=== PATIENT | female | born 1965 | race Caucasian/White ===

== ENCOUNTER → 2022-05-03 10:19 | Outpatient (BNVA) | payer SELFPAY | PROVIDERS: PCP Registered Nurse; Visit Provider Registered Nurse | DX: I10 Essential (primary) hypertension (principal); E78.5 Hyperlipidemia, unspecified; J45.909 Unspecified asthma, uncomplicated; I48.91 Unspecified atrial fibrillation | CPT/HCPCS: 80053; 80061; 84443; 85025 ==

== ENCOUNTER 2022-10-11 10:54 | Outpatient (CLI) | payer OTHER, SELFPAY ==
--- NOTE | 2022-10-11 11:11 | XRR_ITS ---
PROCEDURE INFORMATION: Exam: XR Chest Exam date and time: 10/11/2022 11:13 AM Age: 57 years old Clinical indication: Condition or disease; Lung condition and disease; Pneumonia; Additional info: J18.9 - pneumonia, unspecified organism TECHNIQUE: Imaging protocol: Radiologic exam of the chest. Views: 2 views. COMPARISON: No relevant prior studies available. FINDINGS: Lungs: There is no consolidation. Pleural spaces: There is no pleural effusion or pneumothorax. Heart/Mediastinum: Cardiomediastinal contours are unremarkable. Bones/joints: Bones are unremarkable. XR/XR chest 2V* [id number] IMPRESSION: No acute findings.
== END 2022-10-11 10:55 | disposition home or self-care (01) ==
PROVIDERS: PCP Registered Nurse; Visit Provider Registered Nurse
DX: J18.9 Pneumonia, unspecified organism (principal)
CPT/HCPCS: 71046; 85025

== ENCOUNTER 2023-01-29 14:00 | Outpatient (CLI) | payer OTHER, SELFPAY ==
--- NOTE | 2023-01-29 14:48 | XRR_ITS ---
PROCEDURE INFORMATION: Exam: XR Chest Exam date and time: 01/29/2023 3:10 PM Age: 57 years old Clinical indication: Other: Acute upper respiratory infection; Additional info: J06.9 - acute upper respiratory infection, unspecified TECHNIQUE: Imaging protocol: Radiologic exam of the chest. Views: 2 views. COMPARISON: CR XR chest 2V* [id number] 10/11/2022 11:13 AM FINDINGS: Lungs: Right middle lobe consolidation. Pleural spaces: Unremarkable. No pleural effusion. No pneumothorax. Heart/Mediastinum: Unremarkable. No cardiomegaly. Bones/joints: Unremarkable. XR/XR chest 2V* [id number] IMPRESSION: Right middle lobe consolidation.
[2023-01-29 14:49] LABS: Basophils # 0.1 10^3/uL (0.0-0.1); Basophils % 0.8 %; Eosinophils # 0.3 10^3/uL (0.0-0.8); Eosinophils % 3.2 %; Hematocrit 37.1 % (36-47); Lymphocytes # 2.1 10^3/uL (0.8-4.8); Mean Corpuscular HGB Conc 32.9 g/dL (30-55); Mean Corpuscular Hemoglobin 31.1 pg (27-33); Mean Corpuscular Volume 94.6 fl (85-98); Mean Platelet Volume 9.7 fL (7.4-10.4); Monocytes # 0.6 10^3/uL (0.2-0.9); Monocytes % 6.3 %; Neutrophils # 6.32 10^3/uL (1.8-7.7); Neutrophils % 67.1 %; Nucleated Red Blood Cells % 0 %; Platelet Count 271 10^3/cmm (157-399); Red Blood Count 3.92 10^6/uL (3.85-5.65); Red Cell Distribution Width 13.3 % (12.1-15.1); White Blood Count 9.42 10^3/uL (3.29-11.43)
== END 2023-01-29 14:01 | disposition home or self-care (01) ==
PROVIDERS: PCP Registered Nurse; Visit Provider Registered Nurse
DX: J06.9 Acute upper respiratory infection, unspecified (principal)
CPT/HCPCS: 36415; 71046; 85025

== ENCOUNTER → 2023-08-29 15:05 | Outpatient (BNVA) | payer OTHER, SELFPAY | PROVIDERS: PCP Registered Nurse; Visit Provider Registered Nurse | DX: Z13.6 Encounter for screening for cardiovascular disorders (principal); Z12.39 Encounter for other screening for malignant neoplasm of breast | CPT/HCPCS: 80053 ==

== ENCOUNTER 2023-09-22 13:20 | Outpatient (CLI) | payer OTHER, SELFPAY ==
--- NOTE | 2023-09-22 13:00 | MM_ITS ---
WS: [id number] BILATERAL 3D TOMOSYNTHESIS DIGITAL SCREENING MAMMOGRAPHY WITH CAD CLINICAL INFORMATION: Z12.39 - Encounter for other screening for malignant neop... HISTORY: Screening mammogram. No current complaints. COMPARISON: None. TECHNIQUE: Bilateral CC and MLO views. FINDINGS: Scattered fibroglandular densities bilaterally. No suspicious focal mass, asymmetry, calcifications, or architectural distortion. No evidence of malignancy. MM/[place] [id number] IMPRESSION: BI-RADS: 1-Negative FOLLOW UP: 1 Year Follow-up Recommend return to annual screening mammography.
== END 2023-09-22 13:21 | disposition home or self-care (01) ==
LOC: MOBLMAM 13:21
PROVIDERS: PCP Registered Nurse; Visit Provider Registered Nurse
DX: Z12.31 Encounter for screening mammogram for malignant neoplasm of breast (principal)
CPT/HCPCS: 77063; 77067

== ENCOUNTER → 2024-06-12 11:49 | Outpatient (BNVA) | payer OTHER, SELFPAY | PROVIDERS: PCP Registered Nurse; Visit Provider Internal Medicine Cardiovascular Disease | DX: N18.9 Chronic kidney disease, unspecified; R06.02 Shortness of breath; E78.5 Hyperlipidemia, unspecified; Z79.01 Long term (current) use of anticoagulants; R00.1 Bradycardia, unspecified | CPT/HCPCS: 36415; 71046; 80048; 80076; 83880; 84443; 85025; 93005 ==

== ENCOUNTER 2024-07-04 14:18 | Outpatient (CLI) | payer OTHER, SELFPAY | END 2024-07-04 14:19 | disposition home or self-care (01) | PROVIDERS: PCP Registered Nurse; Visit Provider Internal Medicine Endocrinology, Diabetes & Metabolism | DX: E05.90 Thyrotoxicosis, unspecified without thyrotoxic crisis or storm (principal) | CPT/HCPCS: 36415; 84445 ==

== ENCOUNTER 2024-07-10 08:23 | Outpatient (CLI) | payer OTHER, SELFPAY ==
--- NOTE | 2024-07-10 08:30 | USCV_ITS ---
Eloisa Baldwin Age: 59 Gender: F : 1965 Exam Date: 07/10/2024 08:46 Ordering Phys: Bishop Rubio MD ([email or web address]) Technologist: Exam Location: [facility] Indication: lv function BP: 154 / 84 HR: 57 Rhythm: Sinus Technical Quality: Adequate MEASUREMENTS (Male / Female) Normal Values 2D ECHO LV Diastolic Diameter PLAX 4.8 cm 4.2 - 5.9 / 3.9 - 5.3 cm IVS Diastolic Thickness 1.3 cm 0.6 - 1.0 / 0.6 - 0.9 cm IVS Systolic Thickness 1.6 cm LVPW Diastolic Thickness 1.3 cm 0.6 - 1.0 / 0.6 - 0.9 cm LVPW Systolic Thickness 1.9 cm LVOT Diameter 2.0 cm LV Ejection Fraction 2D Teich 67.0 % LV Ejection Fraction MOD 4C 59.7 % LV Ejection Fraction MOD 2C 63.5 % LV Ejection Fraction 2C AL 64.1 % LA Diameter 3.9 cm RA Systolic Volume 4C AL 55.3 ml RA Systolic Volume 4C MOD 53.1 ml LA Sys Volume AL 64.1 cm cubed LA Sys Volume Index AL 32.1 cm cubed/m squared Aorta at Sinotubular Diameter 2.4 cm IVC Diameter 2.0 cm M-MODE LA Ao Ratio MM 1.7 AV Cusp Separation MM 2.0 cm DOPPLER AV Peak Velocity 171.0 cm/s LVOT Peak Velocity 106.0 cm/s AV Area Cont Eq vti 2.2 cm squared AV Area Cont Eq pk 2.0 cm squared MV Peak Velocity 162.0 cm/s MV Area PHT 4.3 cm squared Mitral E to A Ratio 2.0 TV Peak Velocity 158.5 cm/s TR Peak Velocity 171.0 cm/s TR Peak Gradient 11.7 mmHg TV Peak E Velocity 120.0 cm/s PV Peak Velocity 124.0 cm/s FINDINGS Left Ventricle Normal left ventricular size and systolic function, EF 64%. No regional wall motion abnormalities. Mild left ventricular hypertrophy. Grade III/IV diastolic dysfunction (restrictive filling pattern), severely elevated filling pressures. Right Ventricle Normal right ventricular size and systolic function, . Right Atrium Mildly increased right atrial size. Left Atrium Mildly increased left atrial size. Mitral Valve Mild mitral valve regurgitation. Aortic Valve Aortic valve sclerosis. Tricuspid Valve Structurally normal tricuspid valve. Pulmonic Valve Pulmonic valve not well visualized. Pericardium Normal pericardium without effusion. Aorta Normal ascending aorta dimension. IVC Normal inferior vena cava. CONCLUSIONS Normal left ventricular size and systolic function, EF 64%. No regional wall motion abnormalities. Mild left ventricular hypertrophy. Grade III/IV diastolic dysfunction (restrictive filling pattern), severely elevated filling pressures. Aortic valve sclerosis. Mild mitral valve regurgitation. Mild biatrial enlargement There is no pericardial effusion. There are no intracardiac masses. Dr Bishop Rubio MD FACC (Electronically Signed) Final Date: 13 July 2024 09:41 S
== END 2024-07-10 08:24 | disposition home or self-care (01) ==
LOC: RAD 08:23
PROVIDERS: PCP Registered Nurse; Visit Provider Internal Medicine Cardiovascular Disease
DX: R06.09 Other forms of dyspnea (principal); R93.1 Abnormal findings on diagnostic imaging of heart and coronary circulation; I51.7 Cardiomegaly; I34.0 Nonrheumatic mitral (valve) insufficiency; I35.8 Other nonrheumatic aortic valve disorders
CPT/HCPCS: 93306

== ENCOUNTER → 2024-07-11 13:04 | Outpatient (BNVA) | payer OTHER, SELFPAY | PROVIDERS: PCP Registered Nurse; Visit Provider Nurse Practitioner Family | DX: R68.89 Other general symptoms and signs (principal) | CPT/HCPCS: 87400 ==

== ENCOUNTER 2024-07-19 12:43 | Outpatient (CLI) | payer OTHER, SELFPAY ==
--- NOTE | 2024-07-19 13:00 | CT_ITS ---
WS: [id number] CT CHEST HIGH RESOLUTION TECHNIQUE: Noncontrast CT of the chest with coronal and sagittal reformatted images. Inspiratory and expiratory imaging with high-resolution protocol CLINICAL INFORMATION: Fibrosis in lungs seen on imaging study COMPARISON: Radiograph 06/12/2024 DLP: 1139.[address] scans at [facility] use at least one of these dose optimization techniques: automated exposure control; mA and/or kV adjustment per patient size (includes targeted exams where dose is matched to clinical indication); or iterative reconstruction. FINDINGS: Lungs are well aerated. No acute pulmonary infiltrates. No focal pneumonia or pleural fluid. Tiny noncalcified nodule or focal fibrosis RIGHT lower lobe measuring 3 mm. Trace subsegmental atelectasis in the lung bases. Slight subsegmental atelectasis in the lingula. Few tiny scattered micronodules mainly in the LEFT upper lobe. Normal caliber thoracic aorta. No mediastinal or hilar lymphadenopathy. Normal GE junction. No axillary lymphadenopathy. Adrenal glands are normal. Normal GE junction. Increased attenuation in the liver can be seen with amiodarone toxicity. Recommend correlation with amiodarone levels and liver function tests. Slight hypertrophic changes thoracic spine. Mild thoracic curve and kyphosis. No evidence of interstitial lung disease or pulmonary fibrosis on the high- resolution images. Mild air trapping on the expiratory imaging. CT/CT chest wo con [id number] IMPRESSION: 1. No evidence of interstitial lung disease or pulmonary fibrosis. No honeycom nilo. 2. Few tiny mainly subpleural micronodules. Tiny nodule or focal fibrosis in t he RIGHT lower lobe measuring 2 to 3 mm. 3. Increased attenuation in the liver partially can be seen with amiodarone to xicity. Recommend correlation with liver function markers. 4. No other suspicious findings
== END 2024-07-19 12:44 | disposition home or self-care (01) ==
LOC: RAD 12:44
PROVIDERS: PCP Registered Nurse; Visit Provider Internal Medicine Cardiovascular Disease
DX: J84.10 Pulmonary fibrosis, unspecified (principal); R93.2 Abnormal findings on diagnostic imaging of liver and biliary tract; M43.8X4 Other specified deforming dorsopathies, thoracic region; M40.294 Other kyphosis, thoracic region; R91.8 Other nonspecific abnormal finding of lung field
CPT/HCPCS: 71250

== ENCOUNTER 2024-08-03 07:14 | Outpatient (CLI) | payer OTHER, SELFPAY ==
--- NOTE | 2024-08-03 | ECG_ITS ---
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 The perfusion scan will be documented separately. DATA: Baseline heart rate was 81 beats per minute. Baseline blood pressure was 146/71 millimeters of mercury. Target heart rate was 159. Maximum heart rate achieved was 92. which was 57 % of the predicted target heart rate. Maximum blood pressure was 160/90 millimeters of mercury. The reason for ending the test was completion of the protocol. The patient did not experience any symptoms. ELECTROCARDIOGRAM: BASELINE: Sinus rhythm. Normal axis. Interventricular conduction delay, incomplete right bundle branch block, otherwise, no ST-T changes suggestive of ischemia noted. No arrhythmia noted. EXERCISE: After Lexiscan injection, no ST-T changes suggestive of ischemic noted. No arrhythmia noted. CONCLUSION: Please note due to baseline abnormality of the EKG specificity and sensitivity of the EKG portion of LexiScan MIBI stress test will be low 1. EKG not suggestive of ischemia 2. Lexiscan injection unremarkable. 3. Perfusion scan will be documented separately. Electronically Signed On 09-09-2024 21:07:58 CDT by RUBEN TAYLOR [email or web address] [id number]
[2024-08-03 08:15] VITALS: BMI 30.7
--- NOTE | 2024-08-03 08:16 | NMCV_ITS ---
NM candida perf SPECT r/s* [id number] Eloisa Baldwin Age: 59 Gender: F : 1965 Exam Date: 08/03/2024 08:16 Ordering Phys: Bishop Rubio MD ([email or web address]) Technologist: ZACHARIAH Lacy Exam Location: [facility] Indications: cp STRESS TEST [facility] IMAGE PROTOCOL Rest/Stress 1 Lexiscan Day Radiopharmaceutical Dose (mCi) Administration Site Administered by Rest: Tc-99m 10.5 IV Jodi Adorno CUSTOM GARMENT DESIGNER Sestamibi Stress:Tc-99m 32.5 IV Jodi Adorno, CUSTOM GARMENT DESIGNER Sestamibi Rest: 03-Aug-2024 60 Discovery 630 Stress: 03-Aug-2024 30 Discovery 630 0.4mg Lexiscan. Images obtained in supine and prone position. SPECT RESULTS Technical Quality: Good Raw Data Analysis: Normal Image Corrections: No attenuation or motion correction applied Summed Stress Score: 0 Summed Rest Score: 0 Summed Difference Score: 0 PERFUSION FINDINGS SPECT images demonstrate homogeneous tracer distribution throughout the myocardium. FUNCTIONAL RESULTS (calculated via Gated SPECT) Stress Image LV EF (%): 80 Stress EDV (mL):120 TID: 0.93 Stress ESV (mL):24 FUNCTIONAL FINDINGS: There is normal left ventricular systolic function. IMPRESSIONS Myocardial perfusion imaging is normal. Balwinder Ruff MD (Electronically Signed) Final Date: 06 August 2024 09:29 S
--- NOTE | 2024-08-03 09:36 | PC.NURSE ---
Stress test Patient unable to complete exercise mibi due to symptoms. Ambulated almost 2 minutes on treadmill before needing nurse to stop test due to lightheadedness/dizziness and shortness of breath. Patient did not meet target HR. Dr. Calvo notified of pt unable to finish testing or meet target. Verbal orders received to switch order to lexiscan mibi.
[2024-08-03] MEDS: regadenoson 0.4 Mg/5 ml Syringe IVP (09:41)
[2024-08-03] MEDS: aminophylline 25 mg/mL SDV 20 mL IVP ×4 (09:50→09:56)
[2024-08-03 09:58] VITALS: BP 152/67; PULSE 64
== END 2024-08-03 07:15 | disposition home or self-care (01) ==
LOC: CDL 07:15
PROVIDERS: PCP Registered Nurse; Visit Provider Internal Medicine Cardiovascular Disease
DX: R07.9 Chest pain, unspecified (principal)
CPT/HCPCS: 36415; 78452; 93017; 96374; 96375; A9500; J0280; J2785

== ENCOUNTER 2024-08-14 07:01 | Outpatient (CLI) | payer OTHER, SELFPAY ==
[2024-08-14 07:27] VITALS: PULSE 64; RESP 18; O2SAT 99
[2024-08-14] MEDS: albuterol 2.5 mg/3 mL Neb INHALATION (07:27)
[2024-08-14 07:31] VITALS: PULSE 61
== END 2024-08-14 07:02 | disposition home or self-care (01) ==
PROVIDERS: PCP Registered Nurse; Visit Provider Registered Nurse
DX: J45.30 Mild persistent asthma, uncomplicated (principal); R94.2 Abnormal results of pulmonary function studies
CPT/HCPCS: 94060; 94729; J7613

== ENCOUNTER → 2024-09-10 10:42 | Outpatient (BNVA) | payer OTHER, SELFPAY | PROVIDERS: PCP Registered Nurse; Visit Provider Nurse Practitioner Family | DX: R07.89 Other chest pain (principal) | CPT/HCPCS: 93005 ==

== ENCOUNTER 2024-09-24 02:09 | Emergency (ER) | payer OTHER, SELFPAY ==
[2024-09-24] VITALS (7 sets, daily range): BP systolic 119–201; BP diastolic 61–93; PULSE 61–65; RESP 12–17; TEMP 36.4; O2SAT 96–99; BMI 30.4
[2024-09-24 04:31] LABS: Basophils # 0.1 10^3/uL (0.0-0.1); Basophils % 0.5 %; Eosinophils # 0.1 10^3/uL (0.0-0.8); Eosinophils % 0.7 %; Hematocrit 40.9 % (36-47); Lymphocytes % 6.5 %; Monocytes % 6.5 %; Neutrophils # 12.65 10^3/uL (1.8-7.7); Neutrophils % 85.5 %; Nucleated Red Blood Cells % 0 %; Platelet Count 218 10^3/cmm (157-399); Red Blood Count 4.09 10^6/uL (3.85-5.65); Red Cell Distribution Width 13.8 % (12.1-15.1); White Blood Count 14.82 10^3/uL (3.29-11.43)
--- NOTE | 2024-09-24 04:41 | CTR_ITS ---
PROCEDURE INFORMATION: Exam: CT Head Without Contrast Exam date and time: 09/24/2024 4:49 AM Age: 59 years old Clinical indication: C/O dizziness with hypertension; Additional info: Dizzy HTN TECHNIQUE: Imaging protocol: Computed tomography of the head without contrast. Radiation optimization: All CT scans at this facility use at least one of these dose optimization techniques: automated exposure control; mA and/or kV adjustment per patient size (includes targeted exams where dose is matched to clinical indication); or iterative reconstruction. COMPARISON: No relevant prior studies available. RADIATION DOSE METRICS: Total DLP (mGy-cm): 1077.33 FINDINGS: Brain: There is no evidence of acute parenchymal hemorrhage, extra-axial collection, or acute infarction. There is no mass effect, midline shift, or downward herniation. Cerebral ventricles: No ventriculomegaly. Paranasal sinuses: Visualized sinuses are unremarkable. No fluid levels. Mastoid air cells: Visualized mastoid air cells are well aerated. Bones: Unremarkable. No acute fracture. Soft tissues: Unremarkable. CT/CT head wo con* [id number] IMPRESSION: No acute intracranial abnormality.
[2024-09-24] MEDS: amlodipine 10 mg Tablet PO (05:07)
[2024-09-24] MEDS: hyDRALAzine 20 mg/mL INJ 1 mL 10 MG IVP (05:08)
[2024-09-24 05:23] LABS: Bilirubin Urine Negative (Negative); Blood Urine Negative (Negative); Glucose Urine UA Negative (Normal); Ketones Urine Negative (Negative); Leukocyte Esterase Urine 2+ (Negative); Nitrate Urine Negative (Negative); Protein Urine Negative (Negative); Specific Gravity, Urine 1.007 (1.005-1.030); Urine Appearance Clear (CLEAR); Urine Color Yellow (Yellow); Urobilinogen Urine 0.2 mg/dL (Negative)
[2024-09-24 05:28] LABS: Add Urine Microscopic? YES; Bacteria Urine None Seen /hpf; Hyaline Casts Urine 0-4 /lpf; RBC Urine 0-2 /hpf (0-2); Squamous Epithelial Cell Urine 0-5 /hpf (0-5); WBC Urine 0-5 /hpf (0-5)
--- NOTE | 2024-09-24 05:30 | W.ED.RECABL ---
HPI - Recheck/Abnormal Lab/Rx General: Chief Complaint: Recheck/Abnormal Lab/Rx Stated Complaint: htn Time Seen by Provider: 09/24/24 04:30 History of Present Illness: 59-year-old female presenting with hypertension, dizziness/unsteadiness, headache, potential mild visual changes, and paresthesias in her left upper extremity. She takes her blood pressure twice daily, and noticed that her blood pressure was high last evening. She tried to go to bed, but the above symptoms kept her awake. Related Data Home Medications ?Medication ?Instructions ?Recorded ?Confirmed ascorbic acid (vitamin C) 1,000 mg 1 g PO DAILY 02/22/22 09/10/24 tablet cholecalciferol (vitamin D3) 25 25 mcg PO DAILY 02/22/22 09/10/24 mcg (1,000 unit) capsule levocetirizine 5 mg tablet (Xyzal) 5 mg PO DAILY 02/22/22 09/10/24 multivitamin 1 tab PO QAM 02/22/22 09/10/24 vitamin B complex (B 1 tab PO DAILY 02/22/22 09/10/24 Complex-Vitamin B12 tablet) magnesium 200 mg tablet 200 mg PO DAILY 02/03/24 09/10/24 Previous Rx's ?Medication ?Instructions ?Recorded albuterol sulfate 2.5 mg/3 mL 2.5 mg (3 mL) inhalation Q4H PRN 02/01/23 (0.083 %) solution for nebulization bronchospasm 10 days #180 mL albuterol sulfate 90 mcg/actuation 2 puff inhalation Q6H PRN 12/15/23 aerosol inhaler (Ventolin HFA) shortness of breath or wheezing 30 days #8.5 grams potassium chloride 8 mEq 8 meq PO DAILY 30 days #30 caps 06/12/24 capsule,extended release hydralazine 50 mg tablet 75 mg (1.5 x 50 mg) PO TID #90 tabs 08/29/24 telmisartan 80 mg tablet 80 mg PO DAILY #90 tabs 09/10/24 amiodarone 200 mg tablet 200 mg PO DAILY #30 tabs 09/11/24 amlodipine 10 mg tablet 10 mg PO DAILY #30 tabs 09/24/24 Allergies Allergy/AdvReac Type Severity Reaction Status Date / Time amoxicillin Allergy Unknown Verified 09/10/24 10:04 clavulanic acid (From Allergy sick Verified 09/10/24 10:04 Augmentin) codeine Allergy hives Verified 09/10/24 10:04 morphine Allergy hives Verified 09/10/24 10:04 Penicillins Allergy hives Verified 09/10/24 10:04 doxycycline AdvReac Intermediate swelling Verified 09/10/24 10:04 of tongue PFSH ED PFSH: Medical History Pulmonary fibrosis Seasonal allergies Asthma Hypertension Afib Diagnosed in July 2020 Cardioversion in October 2020 Surgical History History of endometrial ablation History of rotator cuff surgery right shoulder History of hysterectomy 2010 Family History Father Diabetes Heart disease Mother Cancer AD (Alzheimer's disease) Stroke Social History Smoking and tobacco/nicotine status: never used tobacco/nicotine Alcohol intake: never Substance/Drug Use: never Adopted: No Caregiver/support person: No Lives independently: No Household members: spouse Marital status: service: No Current occupational status: unemployed Sexually active: Yes Do you think of yourself as: Straight/Heterosexual Current gender identity: Female Physical Exam Const: COMMON NORMALS: no acute distress and alert GENERAL APPEARANCE: cooperative; not ill appearing and not frail appearing HENMT: COMMON NORMALS: normocephalic, atraumatic and Normal external nose present HEAD & SCALP: normocephalic and atraumatic FACE & SINUS: normal facial exam and face symmetric NOSE: Normal external nose present Eye: COMMON NORMALS: Equal, round and reactive pupils present and EOMs intact bilaterally PUPIL: Yes Equal, round and reactive pupils present Neck/C-Spine: GENERAL: Yes trachea midline Chest: CHEST: Yes Symmetrical chest wall rise Resp: COMMON NORMALS: normal respiratory effort, No retractions, No use of accessory muscles and clear to auscultation bilaterally AUSCULTATION: clear to auscultation bilaterally Cardio: COMMON NORMALS: regular rate and regular rhythm RATE: regular rate RHYTHM: regular rhythm GI: COMMON NORMALS: Normal to inspection, nondistended, normoactive bowel sounds present Extremity: COMMON NORMALS: no pedal edema Neuro: ELLIOT COMA SCALE: document GCS findings [place] coma scale eye opening: Spontaneous Elliot coma scale verbal response: Orientated [place] coma scale motor response: Obey commands [place] coma scale total score: 15 COMMON NORMALS: no sensory deficits noted SENSORIUM/ORIENTATION: Yes alert CRANIAL NERVES: Yes CN normal except as noted COORDINATION/BALANCE: [id number] test normal SPEECH: speech normal SENSORY EXAM: Yes extremities (intact) COORDINATION: [id number] test normal Psych: COMMON NORMALS: speech normal SPEECH: Yes normal speech Skin: COMMON NORMALS: no rashes or lesions noted GENERAL SKIN EXAM: no rashes or lesions noted Course Vital Signs: Vital signs: Vital Signs Temperature 97.6 F 09/24/24 02:14 Pulse Rate 61 09/24/24 04:00 Respiratory Rate 17 09/24/24 02:14 Blood Pressure 178/93 09/24/24 04:00 Pulse Oximetry 99 09/24/24 04:00 Oxygen Delivery Me thod Room Air 09/24/24 04:00 MDM - Recheck/Abnormal Lab/Rx Medical Decision Making Patient is given IV hydralazine, oral amlodipine. Blood pressure is now 161/72. Head CT is negative. CBC reveals a white blood cell count of 14.8 Pressure is down to 168/66. Appears to be falling. Will discharge home on as needed amlodipine. She is to check her pressures. Outpatient follow-up. Lab Data 09/24/24 04:25 09/24/24 04:[address] 09/24/24 04:41 IMPRESSION: No acute intracranial abnormality. Laboratory Results WBC 14.82 10^3/uL (3.29-11.43) H 09/24/24 04:25 RBC 4.09 10^6/uL (3.85-5.65) 09/24/24 04:25 Hgb 13.10 g/dL (11.27-16.99) 09/24/24 04:25 Hct 40.9 % (36-47) 09/24/24 04:25 MCV 100.0 fl (85-98) H 09/24/24 04:25 MCH 32.0 pg (27-33) 09/24/24 04:25 MCHC 32.0 g/dL (30-55) 09/24/24 04:25 RDW 13.8 % (12.1-15.1) 09/24/24 04:25 Plt Count 218 10^3/cmm (157-399) 09/24/24 04:25 MPV 11.0 fL (7.4-10.4) H 09/24/24 04:25 Neut % (Auto) 85.5 % 09/24/24 04:25 Lymph % (Auto) 6.5 % 09/24/24 04:25 Hayes % (Auto) 6.5 % 09/24/24 04:25 Eos % (Auto) 0.7 % 09/24/24 04:25 Baso % (Auto) 0.5 % 09/24/24 04:25 Neut # (Auto) 12.65 10^3/uL (1.8-7.7) H 09/24/24 04:25 Lymph # (Auto) 1.0 10^3/uL (0.8-4.8) 09/24/24 04:25 Hayes # (Auto) 1.0 10^3/uL (0.2-0.9) H 09/24/24 04:25 Eos # (Auto) 0.1 10^3/uL (0.0-0.8) 09/24/24 04:25 Baso # (Auto) 0.1 10^3/uL (0.0-0.1) 09/24/24 04:25 Nucleated RBC % (auto) 0 % 09/24/24 04:25 Nucleated RBCs # 0.0 /100WBC 09/24/24 04:25 Sodium Cancelled 09/24/24 04:25 Potassium Cancelled 09/24/24 04:25 Chloride Cancelled 09/24/24 04:25 Carbon Dioxide Cancelled 09/24/24 04:25 Anion Gap Cancelled 09/24/24 04:25 BUN Cancelled 09/24/24 04:25 Creatinine Cancelled 09/24/24 04:25 GFR Calculation Cancelled 09/24/24 04:25 Glucose Cancelled 09/24/24 04:25 Calculated Osmolality Cancelled 09/24/24 04:25 Calcium Cancelled 09/24/24 04:25 Total Bilirubin Cancelled 09/24/24 04:25 AST Cancelled 09/24/24 04:25 ALT Cancelled 09/24/24 04:25 Alkaline Phosphatase Cancelled 09/24/24 04:25 Total Protein Cancelled 09/24/24 04:25 Albumin Cancelled 09/24/24 04:25 Globulin Cancelled 09/24/24 04:25 Urine Color Yellow (Yellow) 09/24/24 04:02 Urine Appearance Clear (CLEAR) 09/24/24 04:02 Urine pH 8.0 (5-7) A 09/24/24 04:02 Ur Specific [place] 1.007 (1.005-1.030) 09/24/24 04:02 Urine Protein Negative (Negative) 09/24/24 04:02 Urine Glucose (UA) Negative (Normal) 09/24/24 04:02 Urine Ketones Negative (Negative) 09/24/24 04:02 Urine Blood Negative (Negative) 09/24/24 04:02 Urine Nitrate Negative (Negative) 09/24/24 04:02 Urine Bilirubin Negative (Negative) 09/24/24 04:02 Urine Urobilinogen 0.2 mg/dL (Negative) 09/24/24 04:02 Ur Leukocyte Esterase 2+ (Negative) A 09/24/24 04:02 Urine RBC 0-2 /hpf (0-2) 09/24/24 04:02 Urine WBC 0-5 /hpf (0-5) 09/24/24 04:02 Ur Squamous Epith Cells 0-5 /hpf (0-5) 09/24/24 04:02 Amorphous Sediment Not Reportable 09/24/24 04:02 Urine Bacteria None seen /hpf (NONE) 09/24/24 04:02 Hyaline Casts 0-4 /lpf H 09/24/24 04:02 All radiology interpretation(s) finalized by discharge Discharge Plan Discharge Patient Disposition: Home Clinical Impression: Hypertensive urgency Condition: Stable Prescriptions: New amlodipine 10 mg tablet 10 mg PO DAILY Qty: 30 0RF No Action multivitamin Tablet 1 tab PO QAM cholecalciferol (vitamin D3) 25 mcg (1,000 unit) capsule 25 mcg PO DAILY vitamin B complex [B Complex-Vitamin B12] Tablet 1 tab PO DAILY ascorbic acid (vitamin C) 1,000 mg tablet 1 g PO DAILY levocetirizine [Xyzal] 5 mg tablet 5 mg PO DAILY magnesium 200 mg tablet 200 mg PO DAILY potassium chloride 8 mEq capsule, extended release 8 meq PO DAILY 30 Days Qty: 30 5RF albuterol sulfate [Ventolin HFA] 90 mcg/actuation HFA aerosol inhaler 2 puff inhalation Q6H PRN (Reason: shortness of breath or wheezing) 30 Days Qty: 8.5 2RF telmisartan 80 mg tablet 80 mg PO DAILY Qty: 90 0RF albuterol sulfate 2.5 mg /3 mL (0.083 %) solution for nebulization 2.5 mg inhalation Q4H PRN (Reason: bronchospasm) 10 Days Qty: 180 0RF hydralazine 50 mg tablet 75 mg PO TID Qty: 90 5RF amiodarone 200 mg tablet 200 mg PO DAILY Qty: 30 1RF Discharge Orders: Discharge ED (Routine); Ordered 09/24/24 Ordered By: Georgi Valderrama Referrals: Deisi Eli FNP [Primary Care Provider] - 1-3 days Patient Instructions: Opioid Safety, Pain Management Activity Restrictions/Additional Instructions: Continue to monitor your blood pressures twice daily. Write numbers down for your physician. Follow-up with your doctor this coming week. If your blood pressure remains greater than 150/90, you may take the medication prescribed. Return to the ER for new or worsening symptoms despite the above. Print Language: Guatemalan Coding Level of Care Code ED [employer] Goods Salesperson for Rena Mccormick
[2024-09-24 05:43] LABS: Add Urine Culture? No
[2024-09-24] MEDS: labetalol 5 mg/mL SDV 20mL 10 MG IVP (05:56)
== END 2024-09-24 06:45 | disposition home or self-care (01) ==
PROVIDERS: Emergency Provider Emergency Medicine; PCP Registered Nurse
DX: I16.0 Hypertensive urgency (principal)
CPT/HCPCS: 36415; 70450; 81001; 85025; 96374; 96375; 99285; J0360; J3490; J9999

== ENCOUNTER 2024-09-25 14:57 | Inpatient (IN) | payer OTHER, SELFPAY ==
[2024-09-25] VITALS (14 sets, daily range): BP systolic 122–197; BP diastolic 55–78; PULSE 56–96; RESP 11–19; TEMP 36.4–36.8; O2SAT 96–99; BMI 30.4
--- NOTE | 2024-09-25 15:02 | ECG_ITS ---
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 Measurements Intervals [place] Rate: 62 P: 57 CT: 209 QRS: 10 QRSD: 98 T: 39 QT: 424 QTc: 434 Interpretive Statements SINUS RHYTHM LOW QRS VOLTAGE IN PRECORDIAL LEADS [QRS DEFLECTION < 1.0 mV IN CHEST LEADS] Compared to ECG 09/10/2024 10:47:44 Low QRS voltage now present Myocardial infarct finding no longer present Electronically Signed On 10-01-2024 10:19:17 CDT by Tonio Calvo M.D. [id number]
--- NOTE | 2024-09-25 15:04 | XRR_ITS ---
PROCEDURE INFORMATION: Exam: XR Chest Exam date and time: 09/25/2024 3:08 PM Age: 59 years old Clinical indication: Angina pectoris; PT states she has some chest discomfort. PT states she is scheduled for an angiogram. PT also complains of left arm pain and intermittent numbness; Additional info: Chest pain TECHNIQUE: Imaging protocol: Radiologic exam of the chest. Views: 1 view. COMPARISON: CT chest [facility] [id number] 07/19/2024 12:54 PM FINDINGS: Lungs: Unremarkable. No consolidation. Pleural spaces: Unremarkable. No pleural effusion. No pneumothorax. Heart/Mediastinum: Unremarkable. No cardiomegaly. Bones/joints: Unremarkable. XR/XR chest 1V portable [id number] IMPRESSION: No acute findings.
--- NOTE | 2024-09-25 15:05 | W.ED.GENADLT ---
HPI - General Adult General: Chief complaint: Syncope Stated complaint: passed out after taking meds, L arm numbness, CP Time Seen by Provider: 09/25/24 15:03 History of Present Illness: 59 yo female presents to the ER with complaints of near syncope after taking isosorbide mononitrate. Pt had had difficulty with syncope in the past. also complaints of tremors after the episode. No specific chest pain. Pt has seen cardiology several times - has had stress testing and echo - stress testing was normal, echo showed diastolic dysfunction. she complains of chronic dyspnea with exertion, unchanged. She not strike her head. Is not on any anticoagulants. Patient was seen 2 days ago for a syncopal episode CT head done at that time was negative other workup was also negative. Associated symptoms: Deny chest pain, dyspnea or rash Related Data Home Medications ?Medication ?Instructions ?Recorded ?Confirmed ascorbic acid (vitamin C) 1,000 mg 1 g PO DAILY 02/22/22 09/25/24 tablet cholecalciferol (vitamin D3) 25 25 mcg PO DAILY 02/22/22 09/25/24 mcg (1,000 unit) capsule vitamin B complex (B 1 tab PO DAILY 02/22/22 09/25/24 Complex-Vitamin B12 tablet) Previous Rx's ?Medication ?Instructions ?Recorded potassium chloride 8 mEq 8 meq PO DAILY 30 days #30 caps 06/12/24 capsule,extended release hydralazine 50 mg tablet 75 mg (1.5 x 50 mg) PO TID #90 tabs 08/29/24 telmisartan 80 mg tablet 80 mg PO DAILY #90 tabs 09/10/24 amiodarone 200 mg tablet 200 mg PO DAILY #30 tabs 09/11/24 amlodipine 10 mg tablet 10 mg PO DAILY #30 tabs 09/24/24 isosorbide mononitrate 30 mg 30 mg PO DAILY #30 tabs 09/25/24 tablet,extended release 24 hr Allergies Allergy/AdvReac Type Severity Reaction Status Date / Time amoxicillin Allergy Unknown Verified 09/25/24 07:18 clavulanic acid (From Allergy sick Verified 09/25/24 07:18 Augmentin) codeine Allergy hives Verified 09/25/24 07:18 morphine Allergy hives Verified 09/25/24 07:18 Penicillins Allergy hives Verified 09/25/24 07:18 doxycycline AdvReac Intermediate swelling Verified 09/25/24 07:18 of tongue Review of Systems Const: Denies: fever(s) or chills Card: Denies: chest pain Resp: Denies: dyspnea GI: Denies: abdominal pain : Denies: dysuria, urinary frequency or urinary urgency Musc: Denies: neck pain or back pain Skin/Breast: Denies: rash PFSH ED PFSH: Medical History Pulmonary fibrosis Seasonal allergies Asthma Hypertension Afib Diagnosed in July 2020 Cardioversion in October 2020 Surgical History History of endometrial ablation History of rotator cuff surgery right shoulder History of hysterectomy 2010 Family History Father Diabetes Heart disease Mother Cancer AD (Alzheimer's disease) Stroke Social History (Updated 09/25/24 @ 20:17 by Lazaro Moise MD) Smoking and tobacco/nicotine status: never used tobacco/nicotine Alcohol intake: never Substance/Drug Use: never Additional social history: 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 She wants full CODE STATUS Adopted: No Caregiver/support person: No Lives independently: No Household members: spouse Marital status: service: No Current occupational status: unemployed Sexually active: Yes Do you think of yourself as: Straight/Heterosexual Current gender identity: Female Physical Exam Const: GENERAL APPEARANCE: cooperative ORIENTATION/CONSCIOUSNESS: Yes awake, Yes oriented to person, Yes oriented to place and Yes oriented to time HENMT: COMMON NORMALS: normocephalic, atraumatic and hearing grossly normal bilaterally HEAD & SCALP: normocephalic and atraumatic Resp: COMMON NORMALS: normal respiratory effort, No retractions, No use of accessory muscles and clear to auscultation bilaterally AUSCULTATION: clear to auscultation bilaterally Cardio: COMMON NORMALS: regular rate, regular rhythm and No murmurs present (Cardio) RATE: regular rate RHYTHM: regular rhythm GI: COMMON NORMALS: Soft to palpation and No hepatosplenomegaly present AUSCULTATION: Yes normoactive bowel sounds PALPATION: Yes Soft to palpation, No Tenderness to palpation present (GI), No Guarding due to palpation present (GI) and Yes No hepatosplenomegaly present Extremity: COMMON NORMALS: normal to inspection, capillary refill normal, no clubbing, cyanosis or edema, no calf tenderness and no pedal edema Neuro: SENSORIUM/ORIENTATION: Yes oriented to person, Yes oriented to place and Yes oriented to time Skin: COMMON NORMALS: no rashes or lesions noted GENERAL SKIN EXAM: no rashes or lesions noted Course Vital Signs: Vital signs: Vital Signs Temperature 98.7 F 09/26/24 04:00 Pulse Rate 62 09/26/24 04:00 Respiratory Rate 17 09/26/24 04:00 Blood Pressure 128/65 09/26/24 04:00 Pulse Oximetry 95 09/26/24 04:00 Oxygen Delivery Me thod Room Air 09/26/24 04:00 MDM - General Adult Medical Decision Making Patient reports having a syncopal episode a few days ago and then 2 episodes today shortly after taking her so written on nitrate. Reviewed her chart and also discussed with her cardiology team and they are scheduling her for an angiogram if there waiting for prior authorization. They are also looking at referring her to pulmonology. Patient has had previous Holter monitors for these episodes which have showed mild relative bradycardia with some episodes of heart rates in the mid to upper 60s. Patient has had A-fib in the past she is currently on amiodarone. Episode today happened after taking isosorbide she is not having any chest pain now. Given the number of recent syncopal episodes we will go ahead and place her on observation discussed with hospitalist. She had complained of some mild chest discomfort and left arm discomfort after the syncopal episode she is quite concerned she may have coronary disease. She did recently have a stress test that was negative. She relates that her also had a stress test that was negative and eventually was found to have coronary artery disease and a cardiac catheterization was done. Discussed with hospitalist orders written Medical Records Assessment and Plan - 59-year-old female with a history of atrial fibrillation presenting for management of hypertension and symptomatic evaluation for dyspnea on exertion. - Hypertension remains variably controlled despite adjustments in antihypertensive regimen. - Noted on Holter monitoring with inadequate rate control, with concerns for continued symptomatic burden from dizziness and episodes of syncope. - Normal findings on stress test and echocardiographic assessments suggest cardiac function is preserved despite symptomatic presentation, necessitating further investigations to assess for underlying structural or obstructive causes. - Differential includes uncontrolled hypertension, potential underlying coronary artery disease not captured on stress testing, or a primary pulmonary disorder. 1. Essential Hypertension - Continue telmisartan 80 mg daily. - Discontinue chlorthalidone due to dizziness and syncope; review blood pressure logs and consider alternative antihypertensives if symptoms persist. - Recommend close blood pressure monitoring and record-keeping for further evaluation of treatment efficacy. 2. Atrial Fibrillation - Continue current regimen of amiodarone for rhythm control. - Plan for assessment of rate efficacy in light of bradycardia; potential review of amiodarone dosage if symptomatic bradycardia persists. - Advise on potential need for further cardiac imaging or invasive diagnostic testing should symptoms continue. 3. Dizziness and giddiness R42 - Discontinuation of chlorthalidone due to correlation with dizziness and syncope. - Reinforce adherence to amiodarone and current hypertension regimen with review pending blood pressure monitoring outcomes. 4. Dyspnea On Exertion - Given normal stress testing and echocardiogram results, additional workup to include potential pulmonology consultation; awaiting insurance approval for pulmonology referral. - Consider alternative sources of dyspnea, including uncontrolled blood pressure and potential pulmonary etiology. Lab Data 09/25/24 15:21 09/25/24 15:21 Radiology Impressions Chest X-Ray 09/25/24 15:04 IMPRESSION: No acute findings. Laboratory Results WBC 5.61 10^3/uL (3.29-11.43) 09/25/24 15:21 RBC 3.84 10^6/uL (3.85-5.65) L 09/25/24 15:21 Hgb 12.10 g/dL (11.27-16.99) 09/25/24 15:21 Hct 38.7 % (36-47) 09/25/24 15:21 MCV 100.8 fl (85-98) H 09/25/24 15:21 MCH 31.5 pg (27-33) 09/25/24 15:21 MCHC 31.3 g/dL (30-55) 09/25/24 15:21 RDW 14.0 % (12.1-15.1) 09/25/24 15:21 Plt Count 168 10^3/cmm (157-399) 09/25/24 15:21 MPV 11.0 fL (7.4-10.4) H 09/25/24 15:21 Neut % (Auto) 70.3 % 09/25/24 15:21 Lymph % (Auto) 18.0 % 09/25/24 15:21 [place] % (Auto) 8.0 % 09/25/24 15:21 Eos % (Auto) 2.3 % 09/25/24 15:21 Baso % (Auto) 1.2 % 09/25/24 15:21 Neut # (Auto) 3.94 10^3/uL (1.8-7.7) 09/25/24 15:21 Lymph # (Auto) 1.0 10^3/uL (0.8-4.8) 09/25/24 15:21 [place] # (Auto) 0.5 10^3/uL (0.2-0.9) 09/25/24 15:21 Eos # (Auto) 0.1 10^3/uL (0.0-0.8) 09/25/24 15:21 Baso # (Auto) 0.1 10^3/uL (0.0-0.1) 09/25/24 15:21 Nucleated RBC % (auto) 0 % 09/25/24 15:21 Nucleated RBCs # 0.0 /100WBC 09/25/24 15:21 Sodium 141 mmol/L (136-145) 09/25/24 15:21 Potassium 4.4 mmol/L (3.5-5.1) 09/25/24 15:21 Chloride 105 mmol/L (98-107) 09/25/24 15:21 Carbon Dioxide 29 mmol/L (22-29) 09/25/24 15:21 Anion Gap 11.4 (5-19) 09/25/24 15:21 BUN 15 mg/dL (8-23) 09/25/24 15:21 Creatinine 1.0 mg/dL (0.5-0.9) H 09/25/24 15:21 GFR Calculation 56.4 mL/min (90-130) L 09/25/24 15:21 Glucose 102 mg/dL (65-115) 09/25/24 15:21 Calculated Osmolality 293 mOsm/kg (285-295) 09/25/24 15:21 Calcium 10.1 mg/dL (8.5-10.5) 09/25/24 15:21 Total Bilirubin 0.3 mg/dL (0.15-1.2) 09/25/24 15:21 AST 30 U/L (0-32) 09/25/24 15:21 ALT 28 U/L (0-33) 09/25/24 15:21 Alkaline Phosphatase 78 U/L (35-105) 09/25/24 15:21 Troponin T Baseline < 6 ng/L (0-10) 09/25/24 15:21 Troponin T 120 Minute 6.00 ng/L (0-10) 09/25/24 17:02 Delta Troponin T 0.22663 ABS# (0-10) 09/25/24 17:02 Total Protein 6.1 g/dL (6.6-8.7) L 09/25/24 15:21 Albumin 4.0 g/dL (3.5-5.2) 09/25/24 15:21 Globulin 2.1 g/dL (1.3-4.6) 09/25/24 15:21 All radiology interpretation(s) finalized by discharge Discharge Plan Discharge Patient Disposition: Placed in Observation Admit Provider: Lazaro Moise Clinical Impression: Bradycardia, Syncope Afib Qualifiers: Atrial fibrillation type: paroxysmal Qualified Code(s): I48.0 - Paroxysmal atrial fibrillation Discharge Diet: Usual diet Discharge Activity: Increase activity as tolerated Coding Level of Care Code ED 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
[2024-09-25 15:26] LABS: Basophils # 0.1 10^3/uL (0.0-0.1); Basophils % 1.2 %; Eosinophils # 0.1 10^3/uL (0.0-0.8); Eosinophils % 2.3 %; Hematocrit 38.7 % (36-47); Mean Corpuscular HGB Conc 31.3 g/dL (30-55); Mean Corpuscular Hemoglobin 31.5 pg (27-33); Mean Corpuscular Volume 100.8 fl (85-98); Monocytes # 0.5 10^3/uL (0.2-0.9); Neutrophils # 3.94 10^3/uL (1.8-7.7); Neutrophils % 70.3 %; Nucleated Red Blood Cells % 0 %; Platelet Count 168 10^3/cmm (157-399); Red Blood Count 3.84 10^6/uL (3.85-5.65); White Blood Count 5.61 10^3/uL (3.29-11.43)
[2024-09-25] MEDS: aspirin 81 mg Chew Tablet 324 MG PO (15:33)
[2024-09-25 15:44] LABS: Troponin(5th) Baseline < 6 ng/L (0-10)
[2024-09-25 15:45] LABS: Alanine Aminotransferase 28 U/L (0-33); Alkaline Phosphatase 78 U/L (35-105); Blood Urea Nitrogen 15 mg/dL (8-23); Calcium 10.1 mg/dL (8.5-10.5); Carbon Dioxide 29 mmol/L (22-29); Chloride 105 mmol/L (98-107); Creatinine Clr Calc Pharmacy 65.0974; Globulin 2.1 g/dL (1.3-4.6); Glomerular Filtration Rate 56.4 mL/min (90-130); Glucose 102 mg/dL (65-115); Osmolality Calculated 293 mOsm/kg (285-295); Sodium 141 mmol/L (136-145); Total Bilirubin 0.3 mg/dL (0.15-1.2); Total Protein 6.1 g/dL (6.6-8.7)
[2024-09-25 15:51] LABS: Anion Gap 11.4 (5-19); Aspartate Amino Transferase 30 U/L (0-32); Potassium 4.4 mmol/L (3.5-5.1)
--- NOTE | 2024-09-25 17:04 | ECG_ITS ---
[facility] Test Date: 2024-09-25 Pat Name: Eloisa Baldwin Department: Room: Gender: Female Director Of Blood: : 1965 Requested By: Adebayo Leal Order Number: [id number] Juan Carlos MD: Tonio Calvo M.D. Measurements Intervals [place] Rate: 57 P: 60 SC: 217 QRS: 22 QRSD: 112 T: 48 QT: 473 QTc: 462 Interpretive Statements SINUS BRADYCARDIA WITH FIRST DEGREE AV BLOCK LOW QRS VOLTAGE IN PRECORDIAL LEADS [QRS DEFLECTION < 1.0 mV IN CHEST LEADS] MODERATE INTRAVENTRICULAR CONDUCTION DELAY [110+ ms QRS DURATION] Compared to ECG 09/25/2024 15:02:37 First degree AV block now present Intraventricular conduction delay now present Sinus rhythm no longer present Electronically Signed On 10-01-2024 10:40:49 CDT by Tonio Calvo M.D. [id number]
[2024-09-25 17:49] LABS: Troponin 5 2HR Delta 0.00001 ABS# (0-10)
--- NOTE | 2024-09-25 19:53 | USCV_ITS ---
Eloisa Baldwin Age: 59 Gender: F : 1965 Exam Date: 09/25/2024 21:55 Ordering Phys: Lazaro Moise MD Technologist: ILENE [place] [facility] [place]: syncope and HTN, check vertebral arteries also Risk Factors: No DM, never smoked, Previous Vascular Surgery: None Right Brachial BP: 184 / 74 Left Brachial BP: / Right Left Velocity (cm/s) Spectral Plaque Velocity (cm/s) Spectral Plaque Syst/Diast Broadening Syst/Diast Broadening 115.20/19.30 None None Prox CCA 100.50/ 18.10 None None 91.90/ 15.40 None Mid CCA 90.80 / 18.10 None None 88.00/ 14.10 Min None Distal CCA 83.50 / 18.10 Min None 60.00/ 14.10 Min None Prox ICA 82.00 / 25.40 Min None 89.50/ 21.80 Min None Mid ICA 100.20/ 27.20 Min None 83.20/ 24.40 Min None Distal ICA 90.00 / 21.50 Min None 125.80 Min None ECA 113.00 None 1.00 ICA/CCA 1.20 Antegrade Vertebral Antegrade 52.50/ 12.10 cm/s 34.20/ 7.20 cm/s Tri Subclavian Tri 99.10 131.9 0 CONCLUSIONS Right ICA stenosis <50%. Mild atheromatous plaque right carotid bulb/ICA. Left ICA stenosis <50%. Mild atheromatous plaque left carotid bulb/ICA. Normal antegrade Doppler flow noted in the right vertebral artery. Normal antegrade Doppler flow noted in the left vertebral artery. Lazaro Rojas MD (Electronically Signed) Final Date: 27 Sep 2024 14:41 S
--- NOTE | 2024-09-25 20:08 | PM.HP ---
Providers/Chief Complaint Admitting Physician: Lazaro Moise MD Primary Care Provider: BOO Richard Chief Complaint: passed out after taking meds, L arm numbness, CP History of Present Illness Eloisa Baldwin is a 59 year old female has been having recurrent syncope and near syncope. She was just seen on 09/24/2024 with blood pressure [id number] and lightheadedness and dizziness. Her amlodipine was increased. She spoke with her nurse practitioner today and was cautioned to take just half the tablet but today at work she was noted after taking her meds early in the morning to be lightheaded. She says her vision went black and she could hear people talking saying things like do not fall over and she remembers thinking if I could control this I would not be following over but she could not respond verbally. The first episode lasted about 5 minutes she recovered and then she had a second episode lasting about a minute. Tuesday night to the she had hypertension 218/105 and 200/100. She states her heart rate was controlled although she does have A-fib and thinks her monitor recently showed some irregularity. Here her blood pressure still 160s to 180s but heart rate bradycardic in the 50s to 60s. Patient has had a stress test in May that was stopped due to lightheadedness and switch to chemical nuclear test which was negative. She has had an echocardiogram which showed significant diastolic dysfunction but with a preserved LVEF of 65% diastolic dysfunction was grade 3-4. No mention of significant valvular disease. She has not had carotid Dopplers. She has had Holter monitor which was negative but did not include in its monitoring any of the symptomatic episodes. She has had hypertension for 5 years worsening more severe in 2 years and very severe in the last 2 months. She states her syncope episodes have occurred since May at the stress test and then now 4 episodes to on the and then 2 episodes this morning. She has never had WA or stroke but it does run in the family. Past cardiac history includes cardioversion October 2021 Family history maternal grandpa had WA and stroke. Dad had diabetes and WA paternal aunt had WA and diabetes mom had CVA and Alzheimer's lung cancer and tobacco abuse and ended up blind from stroke Sister had a stroke at age 64 Brother of alcoholic cirrhosis Notably the patient has been going to the chiropractor 2-3 times for neck adjustment last 1 was maybe 3 weeks ago. She denies any injury preceding it or from the chiropractor Review of Systems Narrative: General No fevers chills Cardiovascular no chest pain palpitations she does have hypertension [id number] Respiratory no shortness of breath cough wheezing GI no nausea vomiting diarrhea negative Neuro positive for mild headache yesterday she had a left arm and leg numbness. Additionally both arms felt very heavy but the left side was worse this was accompanied by her hypertension stroke CT was negative Malignancy no history of cancer Medications/Allergies Home Medications ?Medication ?Instructions ?Recorded ?Confirmed ?Last Taken ?Type ascorbic acid (vitamin C) 1,000 mg 1 g PO DAILY 02/22/22 09/25/24 09/25/24 History tablet cholecalciferol (vitamin D3) 25 25 mcg PO DAILY 02/22/22 09/25/24 09/25/24 History mcg (1,000 unit) capsule vitamin B complex (B 1 tab PO DAILY 02/22/22 09/25/24 09/25/24 History Complex-Vitamin B12 tablet) potassium chloride 8 mEq 8 meq PO DAILY 30 days #30 caps 06/12/24 09/25/24 09/25/24 Rx capsule,extended release hydralazine 50 mg tablet 75 mg (1.5 x 50 mg) PO TID #90 tabs 08/29/24 09/25/24 09/25/24 Rx telmisartan 80 mg tablet 80 mg PO DAILY #90 tabs 09/10/24 09/25/24 09/25/24 Rx amiodarone 200 mg tablet 200 mg PO DAILY #30 tabs 09/11/24 09/25/24 09/25/24 Rx amlodipine 10 mg tablet 10 mg PO DAILY #30 tabs 09/24/24 09/25/24 09/25/24 Rx isosorbide mononitrate 30 mg 30 mg PO DAILY #30 tabs 09/25/24 09/25/24 09/25/24 Rx tablet,extended release 24 hr Allergies Allergy/AdvReac Type Severity Reaction Status Date / Time amoxicillin Allergy Unknown Verified 09/25/24 07:18 clavulanic acid (From Allergy sick Verified 09/25/24 07:18 Augmentin) codeine Allergy hives Verified 09/25/24 07:18 morphine Allergy hives Verified 09/25/24 07:18 Penicillins Allergy hives Verified 09/25/24 07:18 doxycycline AdvReac Intermediate swelling Verified 09/25/24 07:18 of tongue PFSH Acute PFSH: Medical History Pulmonary fibrosis Seasonal allergies Asthma Hypertension Afib Diagnosed in July 2020 Cardioversion in October 2020 Surgical History History of endometrial ablation History of rotator cuff surgery right shoulder History of hysterectomy 2010 Family History Father Diabetes Heart disease Mother Cancer AD (Alzheimer's disease) Stroke Social History (Updated 09/25/24 @ 20:17 by Lazaro Moise MD) Smoking and tobacco/nicotine status: never used tobacco/nicotine Alcohol intake: never Substance/Drug Use: never Additional social history: 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 She wants full CODE STATUS Adopted: No Caregiver/support person: No Lives independently: No Household members: spouse Marital status: service: No Current occupational status: unemployed Sexually active: Yes Do you think of yourself as: Straight/Heterosexual Current gender identity: Female Vitals/I&O/Wt Last Vital Signs Temp 97.6 F 09/25/24 15:10 Pulse 56 L 09/25/24 20:03 Resp 19 H 09/25/24 15:10 BP 145/71 09/25/24 20:03 Pulse Ox 96 09/25/24 20:03 O2 Del Method Room Air 09/25/24 20:03 Weight last 48 hrs Weight 85.548 kg Physical Exam Narrative: General well-developed well-nourished female overweight CV regular rate and rhythm no loud murmurs Lungs clear to auscultation bilaterally Abdomen positive bowel tones soft Calves trace ankle edema no asymmetry tenderness or cords Vascular no carotid or vertebral bruits heard radial pulses 2+ and borderline bradycardic Neuro she is alert and oriented x 3 external ocular movements are intact. Moves all extremities symmetrically. Skin is warm and dry Data 09/25/24 15:21 09/25/24 15:21 A&P Assessment and plan (1) Syncope: Given the hypertension and left sided symptoms of weakness and numbness as well as the blackout vision I am concerned about vascular disease in the neck. Carotid ultrasound with vertebrals will be obtained. Patient will be on telemetry overnight and admitted to the hospital. Cholesterol 206 LDL around the 102 in 2001. Will check lipid profile in the morning as well (2) Hypertensive urgency: Continue with telmisartan. Add single dose losartan continue with amlodipine and hydralazine (3) Pulmonary fibrosis: I do not think this explains her current symptoms she is currently with good oxygen saturations (4) Bradycardia: Bradycardia not well explained given that she is on no rate limiting medications we will check TSH Plan Patient is admitted to observation on telemetry with carotid Dopplers. Will treat the blood pressure as it has been quite high but will monitor for signs of neurologic compromise which could present itself with carotid vertebral narrowing. She has had recent history of chiropractic manipulation without injury of the neck experienced PDMP PDMP Reviewed: Not Reviewed Attestations Medical Necessity Statement*: Will require observation in the hospital overnight for blood pressure management and carotid Dopplers with vertebrals. I am unclear whether she will require more than 1 midnight at this time so she will be started on observation Coding Level of Care Code 96665 Diagnoses Syncope R55 Hypertensive urgency I16.0 Pulmonary fibrosis J84.10 Bradycardia R00.1 Time Spent (min) 70
[2024-09-25] MEDS: losartan 50 mg Tablet 100 MG PO (20:50)
[2024-09-25] MEDS: acetaminophen 325 mg Tablet 650 MG PO (21:02)
--- NOTE | 2024-09-25 21:04 | ECG_ITS ---
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 Measurements Intervals [place] Rate: 58 P: 75 [place]: 174 QRS: 17 QRSD: 114 T: 42 QT: 451 QTc: 443 Interpretive Statements SINUS BRADYCARDIA LOW QRS VOLTAGE IN PRECORDIAL LEADS [QRS DEFLECTION < 1.0 mV IN CHEST LEADS] MODERATE INTRAVENTRICULAR CONDUCTION DELAY [110+ ms QRS DURATION] Compared to ECG 09/25/2024 16:52:05 First degree AV block no longer present Electronically Signed On 10-01-2024 10:40:25 CDT by Tonio Calvo M.D. [email or web address] [id number]
[2024-09-25 22:59] LABS: Troponin 5 6HR Delta 0.00001 ng/L (0-12)
[2024-09-26] VITALS (10 sets, daily range): BP systolic 128–186; BP diastolic 60–75; PULSE 62–74; RESP 11–22; TEMP 36.4–37.1; O2SAT 95–97
[2024-09-26] MEDS: hyDRALAzine 50 mg Tablet 75 MG PO ×3 (07:54→20:23)
[2024-09-26] MEDS: amlodipine 10 mg Tablet PO (07:54)
[2024-09-26] MEDS: losartan 50 mg Tablet 100 MG PO (07:54)
[2024-09-26] MEDS: acetaminophen 325 mg Tablet 650 MG PO ×2 (07:54→12:58)
[2024-09-26] MEDS: amiodarone 200 mg Tablet PO (07:55)
--- NOTE | 2024-09-26 08:27 | USCV_ITS ---
Eloisa Baldwin Age: 59 Gender: F : 1965 Exam Date: 09/26/2024 09:23 Ordering Phys: Jose Hinton MD Technologist: Exam Location: [facility] [place] Indication: tele BP: 132 / 74 HR: Rhythm: Sinus Technical Quality: Adequate MEASUREMENTS (Male / Female) Normal Values 2D ECHO LV Diastolic Diameter PLAX 5.3 cm 4.2 - 5.9 / 3.9 - 5.3 cm IVS Diastolic Thickness 1.1 cm 0.6 - 1.0 / 0.6 - 0.9 cm IVS Systolic Thickness 1.5 cm LVPW Diastolic Thickness 1.2 cm 0.6 - 1.0 / 0.6 - 0.9 cm LVPW Systolic Thickness 1.8 cm LVOT Diameter 2.0 cm LV Ejection Fraction 2D Teich 70.0 % LV Ejection Fraction MOD 4C 67.3 % LV Ejection Fraction MOD 2C 64.8 % LV Ejection Fraction 2C AL 66.2 % LA Diameter 3.7 cm RA Systolic Volume 4C AL 52.9 ml RA Systolic Volume 4C MOD 51.4 ml LA Sys Volume AL 64.0 cm cubed LA Sys Volume Index AL 31.8 cm cubed/m squared Aorta at Sinotubular Diameter 2.6 cm M-MODE LA Ao Ratio MM 1.1 AV Cusp Separation MM 1.6 cm FINDINGS Left Ventricle Right Ventricle Right Atrium Left Atrium Mitral Valve Aortic Valve Tricuspid Valve Pulmonic Valve Pericardium Aorta IVC CONCLUSIONS Limited echocardiogram performed to assess LV systolic function. LV systolic function is normal with EF of 55-60%. No regional wall motion abnormalities are seen. Tonio Calvo MD (Electronically Signed) Final Date: 26 September 2024 12:11 S
--- NOTE | 2024-09-26 13:13 | ECG_ITS ---
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 Measurements Intervals [place] Rate: 68 P: 56 [place]: 228 QRS: -5 QRSD: 104 T: 37 QT: 440 QTc: 469 Interpretive Statements SINUS RHYTHM WITH FIRST DEGREE AV BLOCK Compared to ECG 09/25/2024 21:37:44 First degree AV block now present Sinus bradycardia no longer present Intraventricular conduction delay no longer present Electronically Signed On 10-01-2024 10:15:48 CDT by Tonio Calvo M.D. [email or web address] [id number]
[2024-09-26 13:33] LABS: Troponin(5th) Baseline < 6 ng/L (0-10)
--- NOTE | 2024-09-26 14:43 | CT_ITS ---
WS: [id number] CT HEAD NONCONTRAST HISTORY: left facial TECHNIQUE: Contiguous axial imaging performed through the brain. Bone and soft tissue windows. Sagittal and coronal reformats reviewed. All CT scans at [facility] use at least one of these dose optimization techniques: automated exposure control; mA and/or kV adjustment per patient size (includes targeted exams where dose is matched to clinical indication); or iterative reconstruction. DLP: 1639.58 mGy.cm COMPARISON: 09/24/2024 No acute intracranial hemorrhage, midline shift or mass effect. No atrophy or prior infarcts or herniation. Ventricles: Normal size with no hydrocephalus. No inferior displacement of cerebellar tonsils. Paranasal sinuses: As visualized are clear. Mastoid air cells: Well pneumatized. Calvarium and scalp: Skull is intact with no soft tissue edema or swelling. CT/CT head wo con* [id number] IMPRESSION: Negative head CT.
--- NOTE | 2024-09-26 14:46 | CT_ITS ---
WS: [id number] CT ANGIOGRAM CEREBRAL AND CAROTID ARTERIES HISTORY: dizziness TECHNIQUE: CT angiogram is performed of the carotid and cerebral arteries. During arterial injection imaging is obtained from the skull vertex to the aortic arch in 1.25 mm imaging. Coronal and sagittal reformats are submitted. Additional multi planar reformats of the carotid and cerebral arteries are submitted, MIP imaging also reviewed. NASCET criteria utilized. All CT scans at [facility] use at least one of these dose optimization techniques: automated exposure control; mA and/or kV adjustment per patient size (includes targeted exams where dose is matched to clinical indication); or iterative reconstruction. CONTRAST: Omnipaque 350; 100 mL IV. DLP: 1639.58 mGy.cm COMPARISON: None available. Carotid Angiogram: Right carotid: Common carotid artery: Arises normally from the innominate artery. No significant plaque or stenosis. Internal carotid artery: No plaque or stenosis. External carotid artery: Patent. Left carotid: Common carotid artery: Arises from the base of the innominate. Otherwise normal. Internal carotid artery: No plaque or stenosis. External carotid artery: Patent. Right vertebral artery: Dominant RIGHT vertebral artery is patent. Left vertebral artery: Diffuse small caliber of the LEFT vertebral artery but it is patent. Subclavian arteries: No stenosis or significant abnormality. Upper thorax: Normal. Thyroid gland: Normal. Osseous structures: Unremarkable. CEREBRAL ANGIOGRAM: Intracranial vertebral arteries: Dominant RIGHT vertebral artery. Small caliber but patent LEFT vertebral artery. Vertebral artery may communicate with the LEFT PICA. Basilar artery: No significant stenosis or occlusion. No aneurysm. Intracranial Internal carotid arteries: Demonstrates no significant stenosis or plaque. Middle cerebral arteries: Normal. Anterior cerebral arteries and ACOM: Normal. Posterior cerebral arteries and PCOM's: Normal. Hypoplastic LEFT transverse sinus. Otherwise normal. Mastoid air cells: Normal. Paranasal sinuses: Normal. Calvarium: Normal. CT/CT angio headneck* [id number] IMPRESSION: 1. No significant cervical carotid artery stenosis or plaque. 2. Normal paimiut of Taylor. No aneurysm. 3. Dominant RIGHT vertebral artery. 4. No paucity of vessels in the distal MCA territory.
[2024-09-26 14:47] LABS: Glucose Point of Care 117 mg/dL (70-110)
--- NOTE | 2024-09-26 14:49 | PC.NURSE ---
Patient c/o numbness and tingling down left side. EKG obtained. Informed Dr Hinton. into see patient. Stroke alert called. Team arrived. BS obtained (117). New IV obtained. Labs obtained (rainbow). Patient taken to CT at this time. Patient has informed this RN of significant family history of CVA and TIA.
--- NOTE | 2024-09-26 14:54 | ECG_ITS ---
[facility]: 2024-[facility]26 Pat Name: Eloisa Baldwin Department: Room: 106 Gender: Female Scale Model Maker: : 1965 Requested By: Jose Hinton Order Number: [id number] Juan Carlos MD: Tonio Calvo M.D. Measurements Intervals [place] Rate: 70 P: 21 DC: 206 QRS: -12 QRSD: 118 T: 28 QT: 436 QTc: 472 Interpretive Statements SINUS RHYTHM MODERATE INTRAVENTRICULAR CONDUCTION DELAY [110+ ms QRS DURATION] Compared to ECG 09/26/2024 13:13:09 Intraventricular conduction delay now present First degree AV block no longer present Electronically Signed On 10-01-2024 10:39:14 CDT by Tonio Calvo M.D. [id number] [id number]
[2024-09-26] MEDS: iohexol 350 mg/mL 500 mL Btl (per mL) IV (15:08)
[2024-09-26 15:36] LABS: Cholesterol 206 mg/dL (0-200); HDL Cholesterol 71 mg/dL (60-100); LDL Cholesterol Calculated 109 mg/dL (50-129); LDL HDL Ratio 1.54 RATIO (0.00-3.22); Triglycerides 128 mg/dL (0-150)
[2024-09-26 15:37] LABS: Troponin 5 2HR 6.41 ng/L (0-10); Troponin 5 2HR Delta 0.41001 ABS# (0-10)
--- NOTE | 2024-09-26 15:49 | PM.CCNAC ---
Critical Care Event Note The high probability of a clinically significant, sudden or life threatening deterioration of the patient's [] system(s) required my full and direct attention, intervention and personal management. The critical care time is as shown. This time is in addition to time spent performing any reported procedures but includes the following: [x] Data and vital sign review and interpretation [x] Patient assessment, examination and intervention [x] Documentation [x] Medication orders and management Critical Care Time Code activated: Yes Critical Care Time (min): 45 Additional information about critical care time: -I was called by nursing staff roughly at 2:40 PM - Patient was complaining of left-sided facial numbness left arm numbness, that comes and goes, dizziness - Upon arrival, she tells me that the left facial numbness is mild, left arm numbness is mild, no facial droop, slurring her words, [id number] is equal bilaterally, [id number] equal bilaterally she does report dizziness, no saccadic eye movements, no dizziness upon change head position, equal strength bilateral upper lower extremities NIH stroke scale 1-2 - She reports that one of the reasons that brought her to the hospital is intermittent left arm left facial numbness has been happening as outpatient, dizziness that has been happening as outpatient, she tells her the symptoms come and go, in addition to her syncope - She tells me that she has been seeing Dr. Rubio, he has been trying to do a cardiac cath on her, however insurance is not approving it - In addition she was on Eliquis for atrial fibrillation when she was in [place], but she has been off of it for her paroxysmal atrial fibrillation - In terms of her strokes symptom onset as she has been having symptoms as outpatient, and as of note admitting physician also noted left hand numbness, thus I would say that she is out of the window for tPA - Timeframe of the stroke would be greater than 24 hours - Nonetheless stroke alert was called -Blood sugar within normal limits -Blood pressure 140/90, normal sinus rhythm -EKGs so far have been normal sinus rhythm, echocardiogram within normal limits - Spoke to Dr. Pedro - CT head, CTA head and neck ordered within normal limits - CT head within normal limits - Patient was reexamined, she remains alert oriented x 3, following all commands, currently complaining of minimal left arm numbness, no other focal neurologic deficits, discussed that she is out of the window for tPA as her symptoms have been ongoing for some period of time at least greater than 24 hours, CTA did not show she was a candidate for embolectomy - Given her history of of paroxysmal atrial fibrillation, and her now TIA versus strokelike symptoms, her NIH stroke scale is 3, so will likely require anticoagulant therapy, will start on Eliquis tonight, aspirin 81 now, PT OT, stroke evaluation, she is in agreement, at bedside, will monitor blood pressure closely, allow for permissive hypertension treat if systolic greater than 220 diastolic is greater than 110 Coding Level of Care Code Acute Code for Rena Mccormick
[2024-09-26] MEDS: sodium chloride 0.9% 1,000 ML 75 ML IV (16:25)
[2024-09-26] MEDS: aspirin 81 mg EC Tablet PO (16:25)
[2024-09-26 16:31] LABS: INR 0.94 (0.8-1.2)
--- NOTE | 2024-09-26 16:51 | P.CONIM_ITS ---
<Statement entered by Tonio Calvo M.D - 09/28/24 10:11> Patient was evaluated and cared for in conjunction with an advanced practice practitioner.? I personally examined the patient and reviewed the chart and all pertinent data including imaging, telemetry, and laboratory results.? I discussed the patient in detail with the advanced practice practitioner.? Please see? their note for complete consult note, testing results and agreed upon plan of care for the patient. Patient had a recent stress test not showing significant ischemia. Chest discomfort likely associated with elevated blood pressures. Will uptitrate antihypertensive regimen at this time. Medical therapy for now. GENERAL: Patient is alert, awake and oriented x3. HEART: Irregularly irregular LUNGS: Clear to auscultate bilaterally. CENTRAL NERVOUS SYSTEM: Grossly nonfocal. EXTREMITIES: Lower extremities with out edema bilaterally. Providers/Reason For Consult 2 Consulting Physician/Specialty*: Dr. Lawson Reason for Consult*: syncopal episode Requesting Physician: Dr. Hinton Attending Physician: Jose Hinton MD Primary Care Provider: BOO Richard History of Present Illness History of Present Illness Eloisa Baldwin is a 59 year old female With a history of atypical chest pain, chronic shortness of breath on exertion, hypertension, family history of stroke came into the ER yesterday with what she describes as a main complaint of a syncopal episode. She states she was at work and she was standing up. She states she can tell when these spells are coming on. States they have been going on for a couple of weeks. She also stated that she had a syncopal episode during her stress test although no acute EKG changes were seen to indicate ischemia. She denies any chest pressure at this time. Previous stress test was done on an outpatient basis that showed normal myocardial perfusion imaging with normal ejection fraction.Previous echo showed normal EF at 55-60 without wall motion abnormalities. She does have a history of A-fib in the past in which she was cardioverted and placed on Eliquis for 1 month and then it was subsequently discontinued per patient. She did have a Holter monitor that did not show any significant arrhythmias that would be causing her symptoms. She states she has been having trouble with her blood pressure being uncontrolled. Previous orthostatic readings were negative.While she was on the floor she developed an episode with loss of function of her left arm. Code stroke was called and CTA head and neck was done.No significant carotid stenosis was seen. Normal tribe of Taylor was seen. No acute stroke seen. She was trying to get scheduled for a left heart cath by Dr. Rubio but this was originally declined by insurance. This is being reviewed.She has not had any arrhythmias on telemetry. EKG without ST elevation or T wave abnormalities. Troponins are negative. By the time I have examined her she appears back to baseline. Review of Systems 2 Narrative: Consitutional: denies fever, chills, body aches, or changes in appetite, denies abnormal weight loss Eyes: Denies changes in vision Card: Denies chest pain, palpitations, irregular heart rhythm, edema, syncope, shortness of breath, orthopnea Resp: Denies shortness of breath, denies hemoptysis, denies cough GI: denies abdominal pain, denies nausea or voimting, denies blood in stool : denies blood in urine, denies dysuria Skin: Denies rash, lesions, or wounds, denies changes to skin color Neuro: Reports slight nubmness in left hand Medications/Allergies Home Medications ?Medication ?Instructions ?Recorded ?Confirmed ?Last Taken ?Type ascorbic acid (vitamin C) 1,000 mg 1 g PO DAILY 09/25/24 09/25/24 History tablet cholecalciferol (vitamin D3) 25 25 mcg PO DAILY 09/25/24 09/25/24 History mcg (1,000 unit) capsule vitamin B complex (B 1 tab PO DAILY 02/22/2208/2909/25/24 History Complex-Vitamin B12 tablet) potassium chloride 8 mEq 8 meq PO DAILY 30 days #30 c aps 06/12/24 09/25/24 09/25/24 Rx capsule,extended release hydralazine 50 mg tablet 75 mg (1.5 x 50 mg) PO TID # 90 tabs 08/29/24 09/25/24 09/25/24 Rx telmisartan 80 mg tablet 80 mg PO DAILY #90 tabs 08/2809/25/24 09/25/24 Rx amiodarone 200 mg tablet 200 mg PO DAILY #30 tabs 09/25/24 09/25/24 Rx amlodipine 10 mg tablet 10 mg PO DAILY #30 tabs 04/2 01/2109/25/24 09/25/24 Rx isosorbide mononitrate 30 mg 30 mg PO DAILY #30 tabs 0 09/25/24 09/25/24 09/25/24 Rx tablet,extended release 24 hr Allergies Allergy/AdvReac Type Severity Reaction Status Date / Time amoxicillin Allergy Unknown Verified 09/25/24 07:18 clavulanic acid (From Allergy sick Verified 09/25/24 07:18 Augmentin) codeine Allergy hives Verified 09/25/24 07:18 morphine Allergy hives Verified 09/25/24 07:18 Penicillins Allergy hives Verified 09/25/24 07:18 doxycycline AdvReac Intermediate swelling Verified 09/25/24 07:18 of tongue Current Medications Generic Name Dose Route Start Last Admin Trade Name Freq PRN Reason Stop Dose Admin Acetaminophen 650 mg 09/25/24 20:09 09/26/24 12:58 Acetaminophen 325 Mg Tablet PO 650 mg Q6H PRN Administration Mild/Mod Pain Or Temp >/= 101 Amiodarone HCl 200 mg 09/26/24 09:00 09/26/24 07:55 Amiodarone 200 Mg Tablet PO 200 mg DAILY YOLANDE Administration Amlodipine Besylate 10 mg 09/26/24 09:00 09/26/24 07:54 Amlodipine 10 Mg Tablet PO 10 mg DAILY YOLANDE Administration Aspirin 81 mg 09/26/24 15:50 09/26/24 16:25 Aspirin 81 Mg Ec Tablet PO 81 mg DAILY YOLANDE Administration Hydralazine HCl 75 mg 09/25/24 21:00 09/26/24 15:17 Hydralazine 50 Mg Tablet PO 75 mg TID YOLANDE Administration Sodium Chloride 1,000 mls @ 75 mls/hr 09/26/24 16:00 09/26/24 16:25 Sodium Chloride 0.9% IV 75 mls/hr .[id number] YOLANDE Administration Isosorbide Mononitrate 30 mg 09/26/24 09:00 09/26/24 07:55 Isosorbide Mononitrate Er 30 Mg Tablet PO Not Given DAILY YOLANDE Losartan Potassium 100 mg 09/26/24 09:00 09/26/24 07:54 Losartan 50 Mg Tablet PO 100 mg DAILY YOLANDE Administration PFSH Acute 2 PFSH: Medical History Pulmonary fibrosis Seasonal allergies Asthma Hypertension Afib Diagnosed in July 2020 Cardioversion in October 2020 Surgical History History of endometrial ablation History of rotator cuff surgery right shoulder History of hysterectomy 2010 Family History Father Diabetes Heart disease Mother Cancer AD (Alzheimer's disease) Stroke Social History (Updated 09/25/24 @ 20:17 by Lazaro Moise MD) Smoking and tobacco/nicotine status: never used tobacco/nicotine Alcohol intake: never Substance/Drug Use: never Additional social history: 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 She wants full CODE STATUS Adopted: No Caregiver/support person: No Lives independently: No Household members: spouse Marital status: service: No Current occupational status: unemployed Sexually active: Yes Do you think of yourself as: Straight/Heterosexual Current gender identity: Female Vitals/I&O/Wt Last Vital Signs Temp 98.4 F 09/26/24 11:57 Pulse 63 09/26/24 16:00 Resp 11 L 09/26/24 16:00 BP 175/73 09/26/24 16:00 Pulse Ox 95 09/26/24 15:14 O2 Del Method Room Air 09/26/24 14:52 09/26/24 09/26/24 09/26/24 06:59 14:59 22:59 Intake Total 200 / 200 840 / 840 Balance 200 / 200 840 / 840 Weight last 48 hrs Weight 191 lb 4.8 oz Weight 188 lb 14.4 oz Weight 188 lb 9.6 oz Physical Exam 2 Narrative: General: No apparent distress, healthy appearing, well nourished HENMT: normoceophalic Neck: No carotid bruit bilaterally Muskuloskeletal: Full ROM Respiratory: Normal respiratory effort, clear to auscultation bilaterally throughout all lung workman, no use of accessory muscles Cardio: No JVD, regular rate, regular rhythm, S1 S2 normal, no murmurs, peripheral pulses 2+ radial palpated bilaterally Extremities: Full ROM, normal, normal capillary refill, no cyanosis or edema Neuro: Alert and oriented x4, no focal motor deficits Psych: Affect normal, mental status grossly normal Skin: No rashes or lesions noted, no wounds Data 09/25/24 15:21 09/25/24 15:21 A&P Assessment and plan (1) Hypertension: (2) Afib: (3) Bradycardia: (4) Hypertensive urgency: Plan At this time patient has had a TIA like symptom. Her vitals are stable. This is being managed per hospitalist team. Denies any chest pain at this time. For now our recommendation is to continue working on blood pressure management for possible undlying reasons for previous chest pressure issues. Recommend continue home medications, continue to watch for any Abnormal arrhythmias that could be contributing to syncopal episodes. Will continue to medically manage at this time. According to nurse, blood pressure comes back down after the episodes. Will give her some time to slowly come back to normal. Agree with Soraida for stroke prevention in afib. Continue amlodpine, amio, hydralazine, isosorbide, and losartan. Thank you Dr. Ahumada, for allowing us to care for this very pleasant 59 year old female. PDMP PDMP Reviewed: Not Reviewed Consult Attestations 2 Medical Necessity Statement: Deferred to primary. Coding Level of Care Code Acute Code for [facility] Fwd Diagnoses Primary hypertension I10 Hypertension type: primary hypertension Paroxysmal atrial fibrillation I48.0 Atrial fibrillation type: paroxysmal Bradycardia R00.1 Hypertensive urgency I16.0
--- NOTE | 2024-09-26 16:55 | P.PN_ITS ---
Subjective 2 Subjective: Patient was seen this morning, she is alert oriented x 3, following all commands, she tells me that as outpatient, she has been seeing Dr. Rubio, she had a normal stress test, they have been trying to do a angiogram on her but insurance has not approved as of yet, she does report dizziness, that comes and goes intermittently, really no change with head position, or with ambulating, denies any focal weakness, but does report intermittent paresthesias of left face, left arm, that come and go, no history of neck injury, neck trauma Vitals/I&O/Wt Last Vital Signs Temp 98.4 F 09/26/24 11:57 Pulse 63 09/26/24 16:00 Resp 11 L 09/26/24 16:00 BP 175/73 09/26/24 16:00 Pulse Ox 95 09/26/24 15:14 O2 Del Method Room Air 09/26/24 14:52 09/26/24 09/26/24 09/26/24 06:59 14:59 22:59 Intake Total 200 / 200 840 / 840 Balance 200 / 200 840 / 840 Weight last 48 hrs Weight 86.772 kg Weight 85.684 kg Weight 85.548 kg Physical Exam 2 Const: COMMON NORMALS: no acute distress and patient oriented x3 Eye: COMMON NORMALS: Equal, round and reactive pupils present PUPIL: Yes Equal, round and reactive pupils present Resp: COMMON NORMALS: normal respiratory effort, No retractions, No use of accessory muscles and clear to auscultation bilaterally AUSCULTATION: clear to auscultation bilaterally Cardio: COMMON NORMALS: regular rate, regular rhythm, S1 normal heart sound present and S2 normal heart sound present RATE: regular rate RHYTHM: r egular rhythm HEART SOUNDS: S1 normal heart sound present and S2 normal heart sound present GI: COMMON NORMALS: Normal to inspection, nondistended, normoactive bowel sounds present and non-tender Extremity: COMMON NORMALS: no pedal edema Neuro: COMMON NORMALS: patient oriented x3, CN's II-XII intact bilaterally, moves all extremities and no focal motor deficits Psych: COMMON NORMALS: mental status grossly normal Data 09/27/24 04:43 09/27/24 04:43 A&P Assessment and plan (1) Syncope: Given the hypertension and left sided symptoms of weakness and numbness as well as the blackout vision I am concerned about vascular disease in the neck. Carotid ultrasound with vertebrals will be obtained. Patient will be on telemetry overnight and admitted to the hospital. Cholesterol 206 LDL around the 102 in 2001. Will check lipid profile in the morning as well (2) Hypertensive urgency: Continue with telmisartan. Add single dose losartan continue with amlodipine and hydralazine (3) Pulmonary fibrosis: I do not think this explains her current symptoms she is currently with good oxygen saturations (4) Bradycardia: Bradycardia not well explained given that she is on no rate limiting medications we will check TSH (5) CVA (cerebral vascular accident): Plan CVA -Complains of dizziness, intermittent left facial numbness, intermittent left arm numbness - With history of atrial fibrillation, not on anticoagulant therapy - Plan - Aspirin, statin, Eliquis - Continue home blood pressure medications -CT head, CTA head and neck within normal limits - Cardiac echo within normal limits - Telemetry monitoring Syncopal episodes -Orthostatic vitals within normal limits - Troponin series within normal limits - Echocardiogram within normal limits - She has a outpatient coronary angiography PDMP PDMP Reviewed: Not Reviewed Attestations 2 Medical Necessity Statement*: Patient requires hospitalization for CVA, syncopal episode, bradycardia Diagnoses Syncope R55 Hypertensive urgency I16.0 Pulmonary fibrosis J84.10 Bradycardia R00.1 CVA (cerebral vascular accident) I63.9
--- NOTE | 2024-09-26 18:09 | ECG_ITS ---
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 Measurements Intervals [place] Rate: 63 P: 30 IN: 210 QRS: -13 QRSD: 106 T: 13 QT: 456 QTc: 469 Interpretive Statements SINUS RHYTHM WITH FIRST DEGREE AV BLOCK Compared to ECG 09/26/2024 14:20:56 First degree AV block now present Intraventricular conduction delay no longer present Electronically Signed On 10-01-2024 10:38:46 CDT by Tonio Calvo M.D. [email or web address] [id number]
[2024-09-26 19:58] LABS: Troponin 5 6HR 6.06 ng/L (0-10); Troponin 5 6HR Delta 0.06001 ng/L (0-12)
[2024-09-26] MEDS: atorvastatin 40 mg Tablet PO (20:23)
[2024-09-26] MEDS: apixaban 5 mg Tablet PO (20:23)
[2024-09-27] VITALS (7 sets, daily range): BP systolic 151–170; BP diastolic 67–77; PULSE 57–72; RESP 12–17; TEMP 36.5–36.9; O2SAT 97–99
[2024-09-27] MEDS: sodium chloride 0.9% 1,000 ML 75 ML IV (04:49)
[2024-09-27 05:17] LABS: Basophils # 0.1 10^3/uL (0.0-0.1); Basophils % 1.2 %; Eosinophils # 0.2 10^3/uL (0.0-0.8); Eosinophils % 3.8 %; Hematocrit 36.3 % (36-47); Lymphocytes # 1.3 10^3/uL (0.8-4.8); Lymphocytes % 22.2 %; Mean Corpuscular HGB Conc 32.8 g/dL (30-55); Mean Corpuscular Hemoglobin 32.2 pg (27-33); Mean Corpuscular Volume 98.1 fl (85-98); Mean Platelet Volume 10.6 fL (7.4-10.4); Monocytes # 0.5 10^3/uL (0.2-0.9); Monocytes % 8.2 %; Neutrophils # 3.77 10^3/uL (1.8-7.7); Neutrophils % 64.4 %; Nucleated Red Blood Cells % 0 %; Platelet Count 187 10^3/cmm (157-399); Red Cell Distribution Width 13.7 % (12.1-15.1); White Blood Count 5.85 10^3/uL (3.29-11.43)
[2024-09-27 05:37] LABS: Alanine Aminotransferase 20 U/L (0-33); Albumin Level 3.5 g/dL (3.5-5.2); Alkaline Phosphatase 67 U/L (35-105); Anion Gap 11.6 (5-19); Aspartate Amino Transferase 17 U/L (0-32); Blood Urea Nitrogen 14 mg/dL (8-23); Calcium 9.6 mg/dL (8.5-10.5); Carbon Dioxide 25 mmol/L (22-29); Chloride 110 mmol/L (98-107); Creatinine Clr Calc Pharmacy 81.3718; Glomerular Filtration Rate 72.9 mL/min (90-130); Glucose 94 mg/dL (65-115); Osmolality Calculated 296 mOsm/kg (285-295); Phosphorus 2.7 mg/dL (2.5-4.5); Potassium 3.6 mmol/L (3.5-5.1); Sodium 143 mmol/L (136-145); Total Bilirubin 0.4 mg/dL (0.15-1.2); Total Protein 5.5 g/dL (6.6-8.7)
[2024-09-27] MEDS: hyDRALAzine 50 mg Tablet 75 MG PO (07:35)
[2024-09-27] MEDS: amiodarone 200 mg Tablet PO (07:35)
[2024-09-27] MEDS: losartan 50 mg Tablet 100 MG PO (07:35)
[2024-09-27] MEDS: amlodipine 10 mg Tablet PO (07:35)
[2024-09-27] MEDS: apixaban 5 mg Tablet PO (07:35)
[2024-09-27] MEDS: aspirin 81 mg EC Tablet PO (07:36)
[2024-09-27] MEDS: chlorthalidone 25 mg Tablet PO (09:14)
--- NOTE | 2024-09-27 09:44 | PC.CHAP ---
Pastoral Care Encounter/Spiritual Assessment Type of Contact [] Declined jail officer visit [] Patient/Family/Request visit [] Outpatient visit [] Follow-up visit [] Physician referral [] Code/Alert [x] Routine visit [] Staff referral [] Actively dying [] Patient sleeping [] Family support [] [] Out of room [] Palliative care [] [] Receiving care in room [] Pre-surgical visit [] Trauma [] Long length of stay [] ICU visit [] Other: Relational/Emotional Strength [x] Patient feels connected with others/family/visitors/staff [] Distress [] Loneliness/isolation [] Abandonment Spirituality of Patient [x] Person of Emani [] Attends Mormon of their [place] [x] Believes in Prayer [] Reads Bible or Evangelical materials [] There are Spiritual issues to be addressed Street Car Inspector Interventions [x] Prayer [x] Active listening [x] Non-anxious presence [x] Spiritual/emotional support [] Crisis/trauma care [] Spiritual counseling [] Bereavement support [] Provided bereavement packet [] Provided Bible/devotional materials [] Provided toy/stuffed animal, coloring book to patient or family member [] Provided Communion [] Anointing/[place] [] Salvation [x] Completed spiritual assessment [] Other: Impact on Illness or Injury [] Angry [] Fearful [] Anxious [] Often cries [] Exhaustion [] Unable to work [] Unable to attend orthodox [] Unable to walk/stand [] Unable to read [] Unable to drive [] Unable to eat/drink [] Unable to sleep [] Unable to be with family [] Patient intubated [] Other: Summary Time spent with patient 5 min
--- NOTE | 2024-09-27 10:47 | PM.DCS ---
Discharge Providers Date of Admission: 09/26/24 16:16 Date of Discharge: September 27, 2024 Attending Provider at Admission: Lazaro Moise MD Attending Provider at Discharge: Jose Hinton MD Primary Care Provider: BOO Richard Diagnoses at Discharge Discharge Diagnosis (1) Hypertension: Status: Acute Qualifiers: Hypertension type: primary hypertension Qualified Code(s): I10 - Essential (primary) hypertension (2) Afib: Status: Acute Qualifiers: Atrial fibrillation type: paroxysmal Qualified Code(s): I48.0 - Paroxysmal atrial fibrillation Permanent problem details: Diagnosed in July 2020 Cardioversion in October 2020 (3) Bradycardia: Status: Acute (4) Hypertensive urgency: Status: Resolved (5) CVA (cerebral vascular accident): Status: Resolved Reason for Visit Reason for Visit: passed out after taking meds, L arm numbness, CP Hospital Course Hospital Course This is a 59-year-old female who presents [facility] due to syncope, lightheadedness, dizziness, left facial and left upper extremity weakness Patient was admitted to [facility], for CVA CVA -Complaints of dizziness, intermittent left facial numbness, intermittent left arm numbness - With history of atrial fibrillation, not on anticoagulant therapy - CT head within normal limits, CT head and neck within normal limits -Onset of symptoms waxing and waning for more than 24 hours, out of tPA window -NIH stroke scale 3 -Managed on aspirin, statin -Given her history of of paroxysmal atrial fibrillation, and her now TIA versus strokelike symptoms, her NIH stroke scale is 3, so will likely require anticoagulant therapy, was managed with Eliquis therapy - Received PT OT, permissive hypertension, monitored as inpatient - Overall clinically improved, discharged on aspirin, statin, Eliquis with close follow-up with cardiology as outpatient - She also required titration of her blood pressure medications Syncope, no recurrent episodes during her hospitalization, CTA head and neck no acute findings, the static vitals within normal limits, follow-up with primary care provider as outpatient. Patient has an outpatient coronary angiogram ordered, no chest pain during hospitalization, follow-up with cardiology as outpatient for coronary angiography Hypertensive urgency, discharged with chlorthalidone, amlodipine, telmisartan, hydralazine, clonidine for hypertensive emergency Physical Exam Const: COMMON NORMALS: no acute distress and patient oriented x3 HENMT: COMMON NORMALS: normocephalic HEAD & SCALP: normocephalic Eye: COMMON NORMALS: Equal, round and reactive pupils present and EOMs intact bilaterally PUPIL: Yes Equal, round and reactive pupils present Neck/C-Spine: COMMON NORMALS: no JVD Resp: COMMON NORMALS: normal respiratory effort, No retractions, No use of accessory muscles and clear to auscultation bilaterally AUSCULTATION: clear to auscultation bilaterally Cardio: COMMON NORMALS: no JVD, regular rate, regular rhythm, S1 normal heart sound present and S2 normal heart sound present RATE: regular rate RHYTHM: regular rhythm HEART SOUNDS: S1 normal heart sound present and S2 normal heart sound present GI: COMMON NORMALS: Normal to inspection, nondistended, normoactive bowel sounds present and non-tender Extremity: COMMON NORMALS: no pedal edema Neuro: COMMON NORMALS: patient oriented x3, CN's II-XII intact bilaterally, moves all extremities, no focal motor deficits and no sensory deficits noted Psych: COMMON NORMALS: mental status grossly normal Discharge Data Studies Completed and Pending Completed Studies During Hospitalization Category Date Time Status CT angio head neck [CT angio headneck* [id number]/[id number]] Cat Scan 09/26/24 14:[address] head wo con* [id number] Stat Cat Scan 09/26/24 14:43 Completed XR chest 1V portable [id number] Stat Exams 09/25/24 15:04 Completed CV. echo limited [id number] Routine Ultrasound 09/26/24 08:27 Completed Pending at discharge Category Date Time Status Complete Blood Count w/Auto AM LABS Lab 09/28/24 04:00 Ordered Complete Blood Count w/Auto AM LABS Lab 09/29/24 04:00 Ordered Comprehensive Metabolic Panel AM LABS Lab 09/28/24 04:00 Ordered Comprehensive Metabolic Panel AM LABS Lab 09/29/24 04:00 Ordered Magnesium AM LABS Lab 09/28/24 04:00 Ordered Magnesium AM LABS Lab 09/29/24 04:00 Ordered Phosphorus AM LABS Lab 09/28/24 04:00 Ordered Phosphorus AM LABS Lab 09/29/24 04:00 Ordered US carotid duplex bilateral [CV carotid duplex BI* Ultrasound 09/25/24 19:53 Taken [id number]] Stat Radiology Impressions Chest X-Ray 09/25/24 15:04 IMPRESSION: No acute findings. Head CT 09/26/24 14:43 IMPRESSION: Negative head CT. Head/Neck CTA 09/26/24 14:46 IMPRESSION: 1. No significant cervical carotid artery stenosis or plaque. 2. Normal [place]. No aneurysm. 3. Dominant RIGHT vertebral artery. 4. No paucity of vessels in the distal MCA territory. Laboratory Results WBC 5.85 10^3/uL (3.29-11.43) 09/27/24 04:43 RBC 3.70 10^6/uL (3.85-5.65) L 09/27/24 04:43 Hgb 11.90 g/dL (11.27-16.99) 09/27/24 04:43 Hct 36.3 % (36-47) 09/27/24 04:43 MCV 98.1 fl (85-98) H 09/27/24 04:43 MCH 32.2 pg (27-33) 09/27/24 04:43 MCHC 32.8 g/dL (30-55) 09/27/24 04:43 RDW 13.7 % (12.1-15.1) 09/27/24 04:43 Plt Count 187 10^3/cmm (157-399) 09/27/24 04:43 MPV 10.6 fL (7.4-10.4) H 09/27/24 04:43 Neut % (Auto) 64.4 % 09/27/24 04:43 Lymph % (Auto) 22.2 % 09/27/24 04:43 O'Brien % (Auto) 8.2 % 09/27/24 04:43 Eos % (Auto) 3.8 % 09/27/24 04:43 Baso % (Auto) 1.2 % 09/27/24 04:43 Neut # (Auto) 3.77 10^3/uL (1.8-7.7) 09/27/24 04:43 Lymph # (Auto) 1.3 10^3/uL (0.8-4.8) 09/27/24 04:43 O'Brien # (Auto) 0.5 10^3/uL (0.2-0.9) 09/27/24 04:43 Eos # (Auto) 0.2 10^3/uL (0.0-0.8) 09/27/24 04:43 Baso # (Auto) 0.1 10^3/uL (0.0-0.1) 09/27/24 04:43 Nucleated RBC % (auto) 0 % 09/27/24 04:43 Nucleated RBCs # 0.0 /100WBC 09/27/24 04:43 PT 13.30 SECONDS (12.1-14.9) 09/26/24 15:54 INR 0.94 (0.8-1.2) 09/26/24 15:54 Sodium 143 mmol/L (136-145) 09/27/24 04:43 Potassium 3.6 mmol/L (3.5-5.1) 09/27/24 04:43 Chloride 110 mmol/L (98-107) H 09/27/24 04:43 Carbon Dioxide 25 mmol/L (22-29) 09/27/24 04:43 Anion Gap 11.6 (5-19) 09/27/24 04:43 BUN 14 mg/dL (8-23) 09/27/24 04:43 Creatinine 0.8 mg/dL (0.5-0.9) 09/27/24 04:43 GFR Calculation 72.9 mL/min (90-130) L 09/27/24 04:43 Glucose 94 mg/dL (65-115) 09/27/24 04:43 POC Glucose 117 mg/dL (70-110) H 09/26/24 14:43 Calculated Osmolality 296 mOsm/kg (285-295) H 09/27/24 04:43 Calcium 9.6 mg/dL (8.5-10.5) 09/27/24 04:43 Phosphorus 2.7 mg/dL (2.5-4.5) 09/27/24 04:43 Magnesium 2.0 mg/dL (1.7-2.3) 09/27/24 04:43 Total Bilirubin 0.4 mg/dL (0.15-1.2) 09/27/24 04:43 AST 17 U/L (0-32) 09/27/24 04:43 ALT 20 U/L (0-33) 09/27/24 04:43 Alkaline Phosphatase 67 U/L (35-105) 09/27/24 04:43 Troponin T Baseline < 6 ng/L (0-10) 09/26/24 13:04 Troponin T 120 Minute 6.41 ng/L (0-10) 09/26/24 14:48 Delta Troponin T 0.71437 ABS# (0-10) 09/26/24 14:48 Troponin T Hi Sens 6Hr 6.06 ng/L (0-10) 09/26/24 19:24 Troponin T Hi Sens 6Hr Delta 0.45318 ng/L (0-12) 09/26/24 19:24 Total Protein 5.5 g/dL (6.6-8.7) L 09/27/24 04:43 Albumin 3.5 g/dL (3.5-5.2) 09/27/24 04:43 Globulin 2.0 g/dL (1.3-4.6) 09/27/24 04:43 Triglycerides 128 mg/dL (0-150) 09/26/24 14:48 Cholesterol 206 mg/dL (0-200) H 09/26/24 14:48 LDL Cholesterol, Calc 109 mg/dL (50-129) 09/26/24 14:48 HDL Cholesterol 71 mg/dL (60-100) 09/26/24 14:48 LDL/HDL Ratio 1.54 RATIO (0.00-3.22) 09/26/24 14:48 Cholesterol/HDL Ratio 2.90 mg/dL (0.0-4.40) 09/26/24 14:48 Vitals Last Vital Signs Temp 97.8 F 09/27/24 07:42 Pulse 57 L 09/27/24 07:42 Resp 16 09/27/24 07:42 BP 163/69 09/27/24 07:42 Pulse Ox 99 09/27/24 07:42 O2 Del Method Room Air 09/27/24 07:42 Discharge Plan Discharge Patient Disposition: Home Condition: Stable Prescriptions: New atorvastatin 40 mg Tablet 40 mg PO BEDTIME 30 Days Qty: 30 0RF chlorthalidone 25 mg Tablet 25 mg PO DAILY 30 Days Qty: 30 0RF aspirin 81 mg Tablet,Delayed Release (Dr/Ec) 81 mg PO DAILY 30 Days Qty: 30 0RF Eliquis 5 mg Tablet 5 mg PO BID@0900,2100 30 Days Qty: 60 0RF clonidine HCl 0.1 mg tablet 0.1 mg PO BID PRN (Reason: htn emergency) 30 Days Qty: 60 0RF Rx Instructions: for sbp>180 or dbp>100 Continued cholecalciferol (vitamin D3) 25 mcg (1,000 unit) capsule 25 mcg PO DAILY vitamin B complex [B Complex-Vitamin B12] Tablet 1 tab PO DAILY ascorbic acid (vitamin C) 1,000 mg tablet 1 g PO DAILY potassium chloride 8 mEq capsule, extended release 8 meq PO DAILY 30 Days Qty: 30 5RF telmisartan 80 mg tablet 80 mg PO DAILY Qty: 90 0RF hydralazine 50 mg tablet 75 mg PO TID Qty: 90 5RF amiodarone 200 mg tablet 200 mg PO DAILY Qty: 30 1RF amlodipine 10 mg tablet 10 mg PO DAILY Qty: 30 0RF Discontinued isosorbide mononitrate 30 mg tablet extended release 24 hr 30 mg PO DAILY Qty: 30 0RF Discharge Orders: Discharge Order (Routine); Ordered 09/27/24 Ordered By: Jose Hinton Referrals: Nora Pedro MD [Physician, Neurology] - 02/04/25 1:00 pm Referral Note: patient is on the waitlist for an appt should one come up sooner Deisi Eli FNP [Primary Care Provider, Family Practice] - 10/04/24 8:00 am Discharge Diet: Usual diet Discharge Activity: Increase activity as tolerated Patient Instructions: Atrial Fibrillation, Clonidine (By mouth), Aspirin (By mouth), Chlorthalidone (By mouth) ([place]), Atorvastatin (By mouth), Apixaban (By mouth), Syncope, Ischemic Stroke (GEN), Chronic Hypertension (ED), Self Care Measures After a Stroke (DC), Stroke (DC), Pain Management, Stroke Stoplight Activity Restrictions/Additional Instructions: - If you have strokelike symptoms please call 911 - Record your blood pressures at home - If your systolic blood pressure is greater than 180 or diastolic greater than 100 then use clonidine as needed for hypertensive emergency - Bring your blood pressure log to primary care physician's office - Please follow-up with cardiology Tuesday for angiogram - For your Eliquis please stop taking your Eliquis on Tuesday and continue to hold for plans on coronary angiography on Tuesday - If any chest pain please go to emergency room Discharge Attestations Time Spent in Discharge Care*: greater than 30 min Quality Metrics Clinical Quality Measures [ No reported AMI, CVA or VTE this stay] Coding Level of Care Code 13724 Total time (in minutes) for Discharge: 45 Diagnoses Primary hypertension I10 Hypertension type: primary hypertension Paroxysmal atrial fibrillation I48.0 Atrial fibrillation type: paroxysmal Bradycardia R00.1 Hypertensive urgency I16.0 CVA (cerebral vascular accident) I63.9
--- NOTE | 2024-09-27 11:46 | P.PN_ITS ---
<Statement entered by Tonio Calvo M.D - 09/29/24 10:08> Patient was cared for in conjunction with an advanced practice practitioner.? I reviewed the chart and all pertinent data including imaging, telemetry, and laboratory results.? I discussed the patient in detail with the advanced practice practitioner.? Please see? their note for complete progress note, testing results and agreed upon plan of care for the patient. Subjective 2 Subjective: Patient denies any chest pain at this time. Denies any strokelike symptoms. She is slightly bradycardic at times but overall stable. Blood pressure is still uncontrolled. Vitals/I&O/Wt Last Vital Signs Temp 98.3 F 09/27/24 10:52 Pulse 57 L 09/27/24 10:52 Resp 14 09/27/24 10:52 BP 168/77 09/27/24 10:52 Pulse Ox 97 09/27/24 10:52 O2 Del Method Room Air 09/27/24 10:52 09/26/24 09/27/24 09/27/24 22:59 06:59 14:59 Intake Total 780 / 1620 1000 / 2620 360 / 360 Balance 780 / 1620 1000 / 2620 360 / 360 Weight last 48 hrs Weight 188 lb 9.6 oz Weight 191 lb 4.8 oz Weight 188 lb 14.4 oz Weight 188 lb 9.6 oz Physical Exam 2 Narrative: General: No apparent distress, healthy appearing, well nourished HENMT: normoceophalic Neck: No carotid bruit bilaterally Muskuloskeletal: Full ROM Respiratory: Normal respiratory effort, clear to auscultation bilaterally throughout all lung workman, no use of accessory muscles Cardio: No JVD, regular rate, regular rhythm, S1 S2 normal, no murmurs, peripheral pulses 2+ radial palpated bilaterally Extremities: Full ROM, normal, normal capillary refill, no cyanosis or edema Neuro: Alert and oriented x4, no focal motor deficits Psych: Affect normal, mental status grossly normal Skin: No rashes or lesions noted, no wounds Data 09/27/24 04:43 09/27/24 04:43 A&P Assessment and plan (1) Hypertension: (2) Afib: (3) Bradycardia: (4) Hypertensive urgency: Plan Patient doing well from a heart standpoint other than blood pressure is still uncontrolled. Will increase hydralazine to 100 mg p.o. 3 times daily. From a cardiology perspective patient may be discharged once deemed appropriate by hospitalist team. She is scheduled for a left heart cath Tuesday as an outpatient procedure. PDMP PDMP Reviewed: Not Reviewed Attestations 2 Medical Necessity Statement*: deferred to primary Coding Level of Care Code Acute Code for Chg Fwd Diagnoses Primary hypertension I10 Hypertension type: primary hypertension Paroxysmal atrial fibrillation I48.0 Atrial fibrillation type: paroxysmal Bradycardia R00.1 Hypertensive urgency I16.0
--- NOTE | 2024-09-27 12:18 | PC.NURSE ---
Patient discharged to home. Instruction provided regarding follow up needs and medication changes. Stroke education with stoplight also provided. Patient verbalized complete understanding. Provided patient with resource packet as well. Medications received prior to discharge via [id number]. IVs and telemetry removed. Patient taken by wheelchair to private vehicle. Spouse to provide transportation. Patient denies pain, dizziness or other needs. No distress observed.
== END 2024-09-27 12:23 | disposition home or self-care (01) | DRG 66 ==
LOC: ER 18:54 → CSU 20:50
PROVIDERS: Admitting Provider Internal Medicine; Emergency Provider Family Medicine; PCP Registered Nurse; Visit Provider Family Medicine
DX: I63.9 Cerebral infarction, unspecified (principal); R29.810 Facial weakness; G83.24 Monoplegia of upper limb affecting left nondominant side; I10 Essential (primary) hypertension; I48.0 Paroxysmal atrial fibrillation; R00.1 Bradycardia, unspecified; I16.0 Hypertensive urgency; J84.10 Pulmonary fibrosis, unspecified; J45.909 Unspecified asthma, uncomplicated; Z79.82 Long term (current) use of aspirin; Z79.01 Long term (current) use of anticoagulants
CPT/HCPCS: 36415; 36416; 70450; 70496; 70498; 71045; 80053; 80061; 82962; 83735; 84100; 84484; 85025; 85610; 92523; 93005; 93308; 93880; 97165; 99285; G0378; J7030; J9999

== ENCOUNTER 2024-09-28 11:03 | Outpatient (CLI) | payer OTHER, SELFPAY ==
[2024-09-28 11:37] LABS: Basophils # 0.1 10^3/uL (0.0-0.1); Basophils % 1.5 %; Eosinophils # 0.1 10^3/uL (0.0-0.8); Eosinophils % 1.8 %; Hematocrit 41.4 % (36-47); Mean Corpuscular HGB Conc 33.1 g/dL (30-55); Mean Corpuscular Hemoglobin 31.9 pg (27-33); Mean Corpuscular Volume 96.3 fl (85-98); Mean Platelet Volume 10.5 fL (7.4-10.4); Monocytes # 0.4 10^3/uL (0.2-0.9); Monocytes % 6.9 %; Neutrophils # 4.55 10^3/uL (1.8-7.7); Neutrophils % 73.5 %; Nucleated Red Blood Cells % 0 %; Platelet Count 205 10^3/cmm (157-399); Red Cell Distribution Width 13.5 % (12.1-15.1); White Blood Count 6.19 10^3/uL (3.29-11.43)
[2024-09-28 11:50] LABS: INR 1.09 (0.83-1.21); Prothrombin Time (Patient) 14.8 Seconds (12.0-15.1)
[2024-09-28 11:52] LABS: Anion Gap 10.8 (5-19); Blood Urea Nitrogen 16 mg/dL (8-23); Calcium 10.6 mg/dL (8.5-10.5); Carbon Dioxide 30 mmol/L (22-29); Chloride 102 mmol/L (98-107); Glomerular Filtration Rate 63.7 mL/min (90-130); Glucose 99 mg/dL (65-115); Osmolality Calculated 289 mOsm/kg (285-295); Potassium 3.8 mmol/L (3.5-5.1); Sodium 139 mmol/L (136-145)
== END 2024-09-28 11:04 | disposition home or self-care (01) ==
PROVIDERS: PCP Registered Nurse; Visit Provider Nurse Practitioner Family
DX: R06.02 Shortness of breath (principal); R07.89 Other chest pain
CPT/HCPCS: 36415; 80048; 85025; 85610; 86850; 86900

== ENCOUNTER 2024-10-01 07:21 | Outpatient (CLI) | payer OTHER, SELFPAY ==
[2024-10-01] VITALS (25 sets, daily range): BP systolic 106–156; BP diastolic 49–77; PULSE 54–71; RESP 6–19; TEMP 36.6; O2SAT 91–98; BMI 30.9
--- NOTE | 2024-10-01 07:30 | XACV_ITS ---
Exam Room: 2 Ht: 168 cm Wt: 87 kg BSA: 2.04 m2 Gender: Female : 1965 Any Known Allergies: Other Exam Priority: Routine Procedure(s): Procedure Description: Diagnostic procedure Procedure Description: Left Heart Catheterization Procedure Description: Left ventriculography Procedure Description: Coronary Angiography Ramiro MENA; Diagnostic Cath Status: Elective Diagnostic Findings * The left main is a medium caliber vessel with no significant is noted lesions. * The left anterior descending artery is a medium caliber vessel which appears to have minimal narrowing of the ostium. The artery tapers towards the LV apex. No significant obstructive lesions were noted. * There is a left circumflex artery is a medium caliber vessel which I was found to have minimal narrowing near the ostium. The mid artery also was found to have around 20 to 30% tubular l narrowing. Minimal intimal elevators were noted on the distal artery.. * The right coronary artery is a medium to large caliber dominant vessel which was found to have no significant obstructive lesions. The PDA branch was found to have around 40% ostial narrowing. The PLV branch was found to have mild diffuse intimal irregularities. No significant stenotic lesions.. Conclusions 1. This is a 59-year-old white female with a history of hypertension and new onset of atrial fibrillation, presenting with recurrent episodes of chest pain. She had an unremarkable Myocardial perfusion imaging and echocardiogram. Because of the ongoing increasing episodes of chest pains, r radiating to the left arm and also the left side of the neck, in order to further evaluate the coronary status, cardiac catheterization was recommended. Patient underwent left heart catheterization with a left and right coronary angiogram and LV angiogram today. The findings are as follows.. 2. Mild diffuse coronary artery disease. Normal LV ejection fraction of 55%. LVEDP of 22 mmHg. Diagnostic RX Recommendation: medical therapy and/or counseling LV EDP: 22 mmHg Ventriculography Ejection Fraction: 55.0 % Left Ventriculography Findings: * The LV gram was performed the HUTTON projection. The LV cavity appears to be normal size. LV ejection fraction was around 55%. No filling defects are noted. No significant mitral valve prolapse or mitral regurgitation. Pressures Phase:Rest AO : 134 / 64 ( 91 ) @ 9:50:00 AM 151 / 62 ( 97 ) @ 10:00:00 AM 154 / 54 ( 93 ) @ 10:00:00 AM LV : 147 / -9 / 20 @ 9:58:00 AM 156 / -7 / 20 @ 9:59:00 AM 144 / -3 / 22 @ 10:00:00 AM 141 / -2 / 21 @ 10:00:00 AM Valves Phase:DefaultPhase AV : 0.0 @ 9:04:46 AM AV Mean Gradient: 0.0 @ 9:04:46 AM Clinical Evaluation EBL: 5mL-10mL Procedural Details Procedure Consent Obtained. Pre-Procedure Time Out. Identified patient by full name and date of as verbalized by the patient/guarantor. Does the consent match the physician's order: Yes. Accurate & Complete Informed Consent: Yes. Inpatient/Outpatient History & Physical on Chart: Yes. If H&P is completed, is and addenduem needed: No. Visualize and Verify Site with Patient/Guarantor: N/A. Relevant Radiology Images available: Yes. The risks, benefits, and alternatives of sedation and/or procedure were discussed by physician. The patient agrees to continue. Procedure started. [facility] Clinical Fraility Score: 3: Managing Well. Academic Registrar Indications: New Onset Angina/CP/HTN/AFIB. Chest Pain Symptom Assessment: Atypical Angina. Cardiovascular Instability: No. Correct patient, site and procedure confirmed by cath team. PERRLA. Strong, equal hand financial reporting director bilaterally. Lungs clear x 5 lobes. IV Site on Arrival: 20 gauge in the left hand. IV Fluids: 0.9% NaCl at KVO. 0 mL infused prior to greenskeeper laborer. Pre Procedural Pulses: bilateral radial was 2+. Pre Procedural Pulses: bilateral dorsalis pedis was 3+. Pre Procedural Pulses: left posterior tibial was 1+. Pre Procedural Pulses: right posterior tibial was 3+. Oxygen started at 2liters/min via nasal canula. right groin was prepped with chloroprep then draped in the usual sterile fashion. right radial was prepped with chloroprep then draped in the usual sterile fashion. Physician notified. Baseline sample Acquired. HR: 66 BPM. Patient's spouse, Payam, is in CPRU room #3. Dr. Rubio will update at the completion of the procedure. Equipment: 6F - Radial. Cardiac Cath Pack. [employer] Manifold Kit Model BT 2000. Heparinized Saline (2 units/mL), 1000 mL bag. Physician arrived. Physician scrubbed in. Immediate Pre-Procedure Time Out. Correct Patient: Yes; Correct Procedure: Yes; Correct Site: Yes; Correct Patient Position: Yes; Correct Supplies: Yes; Dried Flammable Prep: Yes; Blood Products Available: N/A;. Lidocaine 1% infiltrated to the right radial. Arterial access obtained. A 5 belizean Pj catheter in over wire. Multiple views taken of left coronary artery. Catheter redirected to the RCA. Catheter removed over the exchange J wire. A 5 belizean JR4 catheter in over the exchange J wire. Multiple views taken of right coronary artery. Catheter redirected to the LV. Catheter removed over the exchange J wire. A 5 belizean Angled Pig catheter in over the exchange J wire. EDP Sample taken: LV 147/-10,20; HR: 67 BPM; SpO2: 99%. EDP Sample taken: LV 156/-8,20; HR: 67 BPM; SpO2: 99%. LV gram performed in HUTTON @ 10 mL/second for a total of 30 mL. EDP Sample taken: LV 144/-4,22; HR: 66 BPM; SpO2: 99%. Pullback taken: LV 141/-3,21; AO 151/62(97); Mean: 0mmHg, Peak to Peak: 0mmHg, SEP: 6sec/min; HR: 66 BPM; SpO2: 98%. Catheter removed over the exchange J wire. Physician scrubbed out. A TR Band was successful obtaining hemostatsis at the Right Radial artery insertion site. Post Procedure: Pulses reassessed and unchanged. PERRLA. Strong, equal hand financial reporting director bilaterally. No VTE prophylaxis required. Medication's Wasted: Lidocaine 1% = 18 mL. Medication's Wasted: Nitro = 49.8 mg. Medication's Wasted: Heparin = 1000 units. Total IV fluids: 20 mL. Post-op diagnosis: Non-obstructive CAD. Complications: none. Estimated blood loss: 5mL-10mL. Responsiveness - Normal response to verbal stimuli; alert and oriented, PERRLA. Airway - Unaffected, no intervention required; spontaneous ventilation. Circulation: W/N/L, pulses unchanged. Nausea/Vomiting: No. Procedure completed. Patient transferred by wheelchair to CPRU. Vital chart was stopped. Access Site Site: Right Radial artery Sheath Size: 5 Fr Hemostasis Method: TR Band Hemostasis Success: Successful Procedure Medications Start: 8:37 AM Stop: 8:37 AM Medication: Versed Amount: 1 mg Route: I.V. Start: 8:37 AM Stop: 8:37 AM Medication: Fentanyl Amount: 50 mcg Route: I.V. Start: 8:48 AM Stop: 8:48 AM Medication: Fentanyl Amount: 25 mcg Route: I.V. Start: 8:48 AM Stop: 8:48 AM Medication: Verapamil Amount: 5 mg Route: I.A. Start: 8:48 AM Stop: 8:48 AM Medication: Nitrogylcerin Amount: 200 mcg Route: I.A. Start: 8:51 AM Stop: 8:51 AM Medication: Heparin Amount: 5000 units Route: I.V. Start: 8:55 AM Stop: 8:55 AM Medication: Fentanyl Amount: 25 mcg Route: I.V. I, the attending physician, have reviewed and verified all procedure medications. Yes, all medications given per verbal order History/Risk Factors Hypertension: Yes Dyslipidemia: Yes Peripheral Arterial Disease (PAD): No Myocardial Infarction (AL): No Obesity: No Renal Disease: No Tobacco Use: Never Prior Interventions PCI: No CABG: No Valve Surgery: No Report Signatures Finalized by Dr Bishop Rubio MD [facility] on 10/01/2024 07:19 PM
[2024-10-01] MEDS: aspirin 325 mg Tablet PO (07:45)
[2024-10-01] MEDS: diphenhydrAMINE 50 mg Capsule PO (07:45)
--- NOTE | 2024-10-01 08:19 | W.PM.OPSUD ---
Surgery/Procedure H&P Update DATE OF PROCEDURE: October 01, 2024 DATE H&P PERFORMED: 09/26/24 H&P UPDATE INFORMATION: I have reviewed H&P completed within last 30 days, I have examined patient prior to procedure and No changes to prior documentation PREOP DIAGNOSIS: Chest pain/atrial fibrillation/hypertension PRIMARY INDICATION FOR PROCEDURE: Recurrent episodes of pain and numbness in the left upper extremity and left side of the neck; new onset of atrial fibrillation; intermittent accelerated hypertension PLANNED PROCEDURE: Operation Date: 10/01/24 08:30 Proposed Procedures p Cardiac Catheterization - [facility] w/wo LV & Coros(Left) - Bishop Rubio MD PHYSICAL EXAM: alert, oriented x 3, clear to auscultation bilaterally and regular rate & rhythm AIRWAY EVAL/ANESTHESIA PLAN: normal airway, see other exam findings, ASA III, Monitored Anesthesia, Local Anesthesia and Risks, benefits & alternatives of sedation and/or procedure discussed
== END 2024-10-01 13:50 | disposition home or self-care (01) ==
PROVIDERS: PCP Registered Nurse; Visit Provider Internal Medicine Cardiovascular Disease
DX: I25.10 Atherosclerotic heart disease of native coronary artery without angina pectoris (principal); I48.91 Unspecified atrial fibrillation; I10 Essential (primary) hypertension; E78.5 Hyperlipidemia, unspecified; Z82.3 Family history of stroke; Z82.49 Family history of ischemic heart disease and other diseases of the circulatory system; J84.10 Pulmonary fibrosis, unspecified; J45.909 Unspecified asthma, uncomplicated
CPT/HCPCS: 36415; 93458; 96374; 99152; 99153; C1769; C1887; C1894; J1644; J2250; J3010; J3490; J7030; J9999; Q0163; Q9967

== ENCOUNTER → 2024-10-09 15:40 | Outpatient (BNVA) | payer OTHER, SELFPAY | PROVIDERS: PCP Registered Nurse; Visit Provider Nurse Practitioner Family | DX: I10 Essential (primary) hypertension (principal) | CPT/HCPCS: 36415; 80053; 85025 ==

== ENCOUNTER 2024-10-29 09:26 | Outpatient (CLI) | payer OTHER, SELFPAY ==
[2024-10-29 11:04] LABS: Alanine Aminotransferase 30 U/L (0-33); Albumin Level 4.1 g/dL (3.5-5.2); Alkaline Phosphatase 81 U/L (35-105); Blood Urea Nitrogen 14 mg/dL (8-23); Calcium 9.8 mg/dL (8.5-10.5); Carbon Dioxide 24 mmol/L (22-29); Chloride 107 mmol/L (98-107); Globulin 2.1 g/dL (1.3-4.6); Glomerular Filtration Rate 63.7 mL/min (90-130); Glucose 90 mg/dL (65-115); Osmolality Calculated 290 mOsm/kg (285-295); Sodium 140 mmol/L (136-145); Total Bilirubin 0.5 mg/dL (0.15-1.2); Total Protein 6.2 g/dL (6.6-8.7)
[2024-10-29 11:07] LABS: Anion Gap 13.2 (5-19); Aspartate Amino Transferase 31 U/L (0-32); Potassium 4.2 mmol/L (3.5-5.1)
== END 2024-10-29 09:27 | disposition home or self-care (01) ==
PROVIDERS: PCP Registered Nurse; Visit Provider Nurse Practitioner Family
DX: I10 Essential (primary) hypertension (principal); I48.0 Paroxysmal atrial fibrillation
CPT/HCPCS: 36415; 80053

== ENCOUNTER 2024-12-24 09:02 | Outpatient (CLI) | payer OTHER, SELFPAY | END 2024-12-24 09:03 | disposition home or self-care (01) | LOC: SLEEP 09:06 | PROVIDERS: PCP Registered Nurse; Visit Provider Internal Medicine Pulmonary Disease | DX: G47.33 Obstructive sleep apnea (adult) (pediatric) (principal) | CPT/HCPCS: G0399 ==

== ENCOUNTER 2025-03-28 09:12 | Outpatient (CLI) | payer OTHER, SELFPAY ==
--- NOTE | 2025-03-28 09:16 | XR_ITS ---
WS: [id number] Exam: XR chest 2V* [id number] Date/Time of Exam: 03/28/2025 9:17 AM Reason For Exam: R05.2 - Subacute cough Comparison 09/25/2024. The lungs are clear and fully expanded. Normal cardiomediastinal silhouette and regional bony elements. No pleural effusion. XR/XR chest 2V* [id number] IMPRESSION: 1. Negative chest.
== END 2025-03-28 09:13 | disposition home or self-care (01) ==
LOC: RAD 09:13
PROVIDERS: PCP Registered Nurse; Visit Provider Registered Nurse
DX: R05.2 Subacute cough (principal); R06.02 Shortness of breath
CPT/HCPCS: 71046